=== PATIENT | male | born 1950 | race Caucasian/White ===

== ENCOUNTER 2017-02-27 14:09 | Inpatient (IN) | payer MEDICARE ==
[2017-02-27] MEDS ORDERED: Sodium Chloride 0.9% 1,000 ML IV ONE (14:11)
[2017-02-27] MEDS ORDERED: Famotidine 20 MG/2 ML SDV IVPUSH ONE (14:11)
[2017-02-27] MEDS ORDERED: Sodium Chloride 0.9% 10 ML Syringe FLUSH PRN (14:11)
[2017-02-27] MEDS ORDERED: Sodium Chloride 0.9% 2.5 ML Syringe FLUSH PRN (14:11)
[2017-02-27] MEDS ORDERED: Aspirin 81 MG Tab.Chew PO ONE (14:18)
--- NOTE | 2017-02-27 14:18 | EDM.PDOC ---
ED HPI GENERAL MEDICAL PROBLEM - General Chief Complaint: Chest Pain Stated Complaint: CHEST PAIN Time Seen by Provider: 02/27/17 14:17 Source of Information: Reports: Patient - History of Present Illness INITIAL COMMENTS - FREE TEXT/NARRATIVE: HISTORY AND PHYSICAL: History of present illness: [Patient presents with 3 out of 10 chest pain and epigastric pain denies any radiation arm neck or jaw no shortness of breath or diaphoresis Significant cardiac history no [place] 10 years ago with stenting and ultimately a bypass 4-5 years prior No fever nausea vomiting chills sweats ] Review of systems: As per history of present illness and below otherwise all systems reviewed and negative. Past medical history: As per history of present illness and as reviewed below otherwise noncontributory. Surgical history: As per history of present illness and as reviewed below otherwise noncontributory. Social history: No reported history of drug or alcohol abuse. Family history: As per history of present illness and as reviewed below otherwise noncontributory. Physical exam: HEENT: Atraumatic, normocephalic, pupils reactive, negative for conjunctival pallor or scleral icterus, mucous membranes moist, throat clear, neck supple, nontender, trachea midline. Lungs: Clear to auscultation, breath sounds equal bilaterally, chest nontender. Heart: S1S2, regular, negative for clicks, rubs, or JVD. Abdomen: Soft, nondistended, nontender. Negative for masses or hepatosplenomegaly. Negative for costovertebral tenderness. Pelvis: Stable nontender. Genitourinary: Deferred. Rectal: Deferred. Extremities: Atraumatic, negative for cords or calf pain. Neurovascular unremarkable. Neuro: Awake, alert, oriented. Cranial nerves II through XII unremarkable. Cerebellum unremarkable. Motor and sensory unremarkable throughout. Exam nonfocal. Diagnostics: [CBC CMP cardiac enzymes, amylase and lipase ]CT abdomen pelvis with contrast Therapeutics: [Aspirin 324 mg chewable 1 L bolused Normal saline 1 50 mL per hour Nitroglycerin nitroglycerin 3 doses no significant improvement in symptoms Morphine 4 mg IV ] Impression: Acute pancreatitis Chronic history of baseline Definitive disposition and diagnosis as appropriate pending reevaluation and review of above. Middle Chest Pain Score (Numeric/FACES): 3 - Related Data Allergies Allergy/AdvReac Type Severity Reaction Status Date / Time No Known Allergies Allergy Verified 02/27/17 14:17 ED ROS GENERAL - Review of Systems Review Of Systems: ROS reveals no pertinent complaints other than HPI. ED EXAM, GENERAL - Physical Exam Exam: See Below Course - Vital Signs Last Recorded V/S: Last Vital Signs Temp 96.4 F 02/27/17 14:12 Pulse 56 L 02/27/17 17:08 Resp 18 02/27/17 14:12 BP 147/78 H 02/27/17 17:08 Pulse Ox 99 02/27/17 14:12 - Orders/Labs/Meds Orders: Active Orders 24 hr Category Date Time Status Cardiac Monitoring [RC] . DIRECTED Care 02/27/17 14:11 Active EKG Documentation Completion [RC] STAT Care 02/27/17 14:12 Active Oxygen Therapy [RC] ASDIRECTED Care 02/27/17 14:11 Active Abdomen Pelvis w Cont [CT] Stat Exams 02/27/17 14:57 Taken Chest 1V Frontal [CR] Stat Exams 02/27/17 14:11 Taken Sodium Chloride 0.9% [Normal Saline] 1,000 ml Med 02/27/17 15:00 Active IV STAT Sodium Chloride 0.9% [Normal Saline] 1,000 ml Med 02/27/17 17:00 Active IV STAT Sodium Chloride 0.9% [Saline Flush] Med 02/27/17 14:11 Active 10 ml FLUSH ASDIRECTED PRN Sodium Chloride 0.9% [Saline Flush] Med 02/27/17 14:11 Active 2.5 ml FLUSH ASDIRECTED PRN Saline Lock Insert [OM.PC] Stat Oth 02/27/17 14:11 Ordered Medication Orders Sodium Chloride (Normal Saline) 1,000 mls @ 150 mls/hr IV STAT JAMI Sodium Chloride (Normal Saline) 1,000 mls @ 150 mls/hr IV STAT JAMI Last Admin: 02/27/17 17:05 Dose: 150 mls/hr Sodium Chloride (Saline Flush) 10 ml FLUSH ASDIRECTED PRN PRN Reason: Keep Vein Open Sodium Chloride (Saline Flush) 2.5 ml FLUSH ASDIRECTED PRN PRN Reason: Keep Vein Open Labs: Laboratory Tests 02/27/17 02/27/17 02/27/17 Range/Units 14:18 14:18 14:18 WBC 12.88 H (4.0-11.0) K/uL RBC 5.14 (4.50-5.90) M/uL Hgb 15.3 (13.0-17.0) g/dL Hct 45.5 (38.0-50.0) % MCV 88.5 (80.0-98.0) fL MCH 29.8 (27.0-32.0) pg MCHC 33.6 (31.0-37.0) g/dL RDW Std Deviation 42.9 (28.0-62.0) fl RDW Coeff of Theo 14 (11.0-15.0) % Plt Count 240 (150-400) K/uL MPV 10.20 (7.40-12.00) fL Neut % (Auto) 77.0 (48.0-80.0) % Lymph % (Auto) 12.6 L (16.0-40.0) % [place] % (Auto) 9.3 (0.0-15.0) % Eos % (Auto) 0.9 (0.0-7.0) % Baso % (Auto) 0.2 (0.0-1.5) % Neut # (Auto) 9.9 H (1.4-5.7) K/uL Lymph # (Auto) 1.6 (0.6-2.4) K/uL [place] # (Auto) 1.2 H (0.0-0.8) K/uL Eos # (Auto) 0.1 (0.0-0.7) K/uL Baso # (Auto) 0.0 (0.0-0.1) K/uL INR 1.13 H (0.86-1.11) Sodium 138 (136-146) mmol/L Potassium 4.2 (3.5-5.1) mmol/L Chloride 105 (98-110) mmol/L Carbon Dioxide 22 (21-31) mmol/L BUN 16 (6.0-23.0) mg/dL Creatinine 1.0 (0.6-1.5) mg/dL Est Cr Clr Drug Dosing 86.85 mL/min Estimated GFR (MDRD) > 60.0 ml/min Glucose 111 H (60-110) mg/dL Calcium 9.4 (8.8-10.8) mg/dL Total Bilirubin 0.9 (0.1-1.5) mg/dL AST 27 (5-40) IU/L ALT 24 (8-54) IU/L Alkaline Phosphatase 61 (40-150) Creatine Kinase (9-236) IU/L CK-MB (CK-2) (0-6.6) ng/ml Troponin I < 0.10 (0.0-0.29) NG/ML Total Protein 7.3 (6.0-8.0) g/dL Albumin 4.4 (3.4-4.8) g/dL Globulin 2.9 (2.0-3.5) g/dL Albumin/Globulin Ratio 1.5 (1.3-2.8) Amylase 2400 H (10-90) U/L Lipase 7125 H (7-80) U/L Urine Color Urine Appearance Urine pH (5.0-8.0) Ur Specific [place] (1.001-1.035) Urine Protein (NEGATIVE) mg/dL Urine Glucose (UA) (NEGATIVE) mg/dL Urine Ketones (NEGATIVE) mg/dL Urine Occult Blood (NEGATIVE) Urine Nitrite (NEGATIVE) Urine Bilirubin (NEGATIVE) Urine Urobilinogen (<2.0) EU/dL Ur Leukocyte Esterase (NEGATIVE) Urine RBC (0-2/HPF) Urine WBC (0-5/HPF) Ur Epithelial Cells (NONE-FEW) Urine Bacteria (NEGATIVE) Urine Mucus (NONE-MOD) 02/27/17 02/27/17 Range/Units 14:18 16:55 WBC (4.0-11.0) K/uL RBC (4.50-5.90) M/uL Hgb (13.0-17.0) g/dL Hct (38.0-50.0) % MCV (80.0-98.0) fL MCH (27.0-32.0) pg MCHC (31.0-37.0) g/dL RDW Std Deviation (28.0-62.0) fl RDW Coeff of Theo (11.0-15.0) % Plt Count (150-400) K/uL MPV (7.40-12.00) fL Neut % (Auto) (48.0-80.0) % Lymph % (Auto) (16.0-40.0) % [place] % (Auto) (0.0-15.0) % Eos % (Auto) (0.0-7.0) % Baso % (Auto) (0.0-1.5) % Neut # (Auto) (1.4-5.7) K/uL Lymph # (Auto) (0.6-2.4) K/uL [place] # (Auto) (0.0-0.8) K/uL Eos # (Auto) (0.0-0.7) K/uL Baso # (Auto) (0.0-0.1) K/uL INR (0.86-1.11) Sodium (136-146) mmol/L Potassium (3.5-5.1) mmol/L Chloride (98-110) mmol/L Carbon Dioxide (21-31) mmol/L BUN (6.0-23.0) mg/dL Creatinine (0.6-1.5) mg/dL Est Cr Clr Drug Dosing mL/min Estimated GFR (MDRD) ml/min Glucose (60-110) mg/dL Calcium (8.8-10.8) mg/dL Total Bilirubin (0.1-1.5) mg/dL AST (5-40) IU/L ALT (8-54) IU/L Alkaline Phosphatase (40-150) Creatine Kinase 195 (9-236) IU/L CK-MB (CK-2) 2.3 (0-6.6) ng/ml Troponin I (0.0-0.29) NG/ML Total Protein (6.0-8.0) g/dL Albumin (3.4-4.8) g/dL Globulin (2.0-3.5) g/dL Albumin/Globulin Ratio (1.3-2.8) Amylase (10-90) U/L Lipase (7-80) U/L Urine Color DARK YELLOW Urine Appearance CLEAR Urine pH 6.5 (5.0-8.0) Ur Specific [place] 1.020 (1.001-1.035) Urine Protein NEGATIVE (NEGATIVE) mg/dL Urine Glucose (UA) NEGATIVE (NEGATIVE) mg/dL Urine Ketones 15 H (NEGATIVE) mg/dL Urine Occult Blood NEGATIVE (NEGATIVE) Urine Nitrite NEGATIVE (NEGATIVE) Urine Bilirubin NEGATIVE (NEGATIVE) Urine Urobilinogen 1.0 (<2.0) EU/dL Ur Leukocyte Esterase NEGATIVE (NEGATIVE) Urine RBC 0-1 (0-2/HPF) Urine WBC 0-2 (0-5/HPF) Ur Epithelial Cells OCCASIONAL (NONE-FEW) Urine Bacteria FEW (NEGATIVE) Urine Mucus MODERATE (NONE-MOD) Meds: Medications Generic Name Dose Route Start Last Admin Trade Name Freq PRN Reason Stop Dose Admin Sodium Chloride 1,000 mls @ 150 mls/hr 02/27/17 15:00 Normal Saline IV STAT JAIM Sodium Chloride 1,000 mls @ 150 mls/hr 02/27/17 17:00 02/27/17 17:05 Normal Saline IV 150 mls/hr STAT JAMI Administration Sodium Chloride 10 ml 02/27/17 14:11 Saline Flush FLUSH ASDIRECTED PRN Keep Vein Open Sodium Chloride 2.5 ml 02/27/17 14:11 Saline Flush FLUSH ASDIRECTED PRN Keep Vein Open Discontinued Medications Generic Name Dose Route Start Last Admin Trade Name Freq PRN Reason Stop Dose Admin Aspirin 324 mg 02/27/17 14:18 02/27/17 14:23 Aspirin PO 02/27/17 14:19 324 mg ONETIME ONE Administration Famotidine 20 mg 02/27/17 14:11 02/27/17 14:24 Pepcid IVPUSH 02/27/17 14:12 20 mg ONETIME ONE Administration Sodium Chloride 1,000 mls @ 999 mls/hr 02/27/17 14:11 02/27/17 14:25 Normal Saline IV 02/27/17 15:11 999 mls/hr .Bolus ONE Administration Iopamidol 100 ml 02/27/17 16:15 02/27/17 16:40 Isovue Multipack-370 (76%) IVPUSH 02/27/17 16:16 100 ml ONETIME STA Administration Morphine Sulfate 4 mg 02/27/17 15:03 02/27/17 15:53 Morphine IVPUSH 02/27/17 15:04 4 mg ONETIME ONE Administration Nitroglycerin 0.4 mg 02/27/17 14:11 02/27/17 14:36 Nitrostat SL 02/27/17 14:12 0.4 mg ONETIME ONE Administration Departure - Departure Time of Disposition: 17:12 Disposition: Admitted As Inpatient 66 Condition: Fair Clinical Impression: Acute pancreatitis - Discharge Information Forms: ED Department Discharge - My Orders Last 24 Hours: My Active Orders 02/27/17 14:57 Abdomen Pelvis w Cont [CT] Stat 02/27/17 15:00 Sodium Chloride 0.9% [Normal Saline] 1,000 ml IV STAT 02/27/17 17:00 Sodium Chloride 0.9% [Normal Saline] 1,000 ml IV STAT - Assessment/Plan Last 24 Hours: My Active Orders 02/27/17 14:57 Abdomen Pelvis w Cont [CT] Stat 02/27/17 15:00 Sodium Chloride 0.9% [Normal Saline] 1,000 ml IV STAT 02/27/17 17:00 Sodium Chloride 0.9% [Normal Saline] 1,000 ml IV STAT
[2017-02-27] MEDS: Nitroglycerin 0.4 MG Tab.SL SL ONE ×3 (14:24→14:36)
[2017-02-27 14:46] LABS: CHLORIDE,CL 105 mmol/L (98-110); SODIUM,NA 138 mmol/L (136-146)
[2017-02-27] MEDS ORDERED: Sodium Chloride 0.9% 1,000 ML IV SCH ×2 (15:00→17:00)
[2017-02-27] MEDS ORDERED: Morphine 4 MG/ML Syringe IVPUSH ONE (15:03)
[2017-02-27] MEDS ORDERED: Iopamidol 755 MG/ML 500 ML Multipack Bottle IVPUSH STA (16:15)
--- NOTE | 2017-02-27 18:45 | PCM.HP ---
H&P History of Present Illness - General Date of Service: 02/27/17 Admit Problem/Dx: Admission Diagnosis/Problem Admission Diagnosis/Problem Acute pancreatitis Source of Information: Patient History Limitations: Reports: No Limitations - History of Present Illness Initial Comments - Free Text/Narative: 66-year-old male presenting to emergency department with chief complaint of chest pain with past medical history of CABG 3 with stents on Plavix, hypertension hyperlipidemia, and BPH. Patient states that this morning at 11 AM he began to have substernal and epigastric pain. He describes it as "like being punched in the stomach". He denies any radiation to his arm or jaw. He took 3 Tums and 3 baby aspirin which seemed to alleviate some of the pain but it never quite dissipated. Pain is constant and still occurring maximum 5 out of 10 currently 4-10. There was no associated nausea, vomiting, or diaphoresis. In June 2006 patient did have an CA which was stented by Dr. Pickard at [facility]. Then in December 2012 patient had a CABG [address] Saini at [facility]. Patient denies any nausea, vomiting, diarrhea, palpitations, shortness of breath, syncopal episodes, or focal neurologic deficits. He has had a "cold" for the past few days and states that his has been coughing. He did not receive the flu vaccination this year. Patient currently does not have a regular primary care physician here in [place]. He does not drink alcohol and as to his knowledge his triglycerides have been within normal limits. In the Emergency department CBC showed mild leukocytosis at 12.8 K elevated amylase at 2400 and lipase at 7125. Bilirubin was normal at 0.9 calcium within normal limits at 9.4 and kidney function was unremarkable with a BUN of 16 and a creatinine of 1.0. Chest x-ray was unremarkable. CT of the abdomen showed moderate acute pancreatitis with secondary chronic pancreatitis. Significant fluid was seen surrounding the pancreas extending along the bilateral pararenal fascia, right greater than left. There was also small gallstones identified without inflammatory change in the gallbladder. In addition, there were benign-appearing hypodensities within the liver. He was given ASA 324 mg 1, nitroglycerin 0.4 mg sublingual, 20 mg famotidine IV , morphine 4 mg and 1 L normal saline bolus. She was a admitted for acute pancreatitis. Onset of Symptoms: Reports: Today, Sudden Middle Chest Pain Score (Numeric/FACES): 3 - Related Data Allergies/Adverse Reactions: Allergies Allergy/AdvReac Type Severity Reaction Status Date / Time No Known Allergies Allergy Verified 02/27/17 14:17 Home Medications: Home Meds Carvedilol [Coreg] 25 mg PO DAILY 02/27/17 [History] Celecoxib [CeleBREX] 200 mg PO DAILY 02/27/17 [History] Clopidogrel [Plavix] 75 mg PO DAILY 02/27/17 [History] Ezetimibe [Zetia] 10 mg PO DAILY 02/27/17 [History] Finasteride 5 mg PO DAILY 02/27/17 [History] Lisinopril 10 mg PO DAILY 02/27/17 [History] Niacin [Niaspan] 500 mg PO DAILY 02/27/17 [History] Rosuvastatin Calcium [Crestor] 40 mg PO DAILY 02/27/17 [History] Tamsulosin [Flomax] 0.4 mg PO DAILY 02/27/17 [History] Past Medical History Cardiovascular History: Reports: CA, Stents Musculoskeletal History: Reports: Muscular Dystrophy - Infectious Disease History Infectious Disease History: Reports: Chicken Pox, Measles, Mumps - Past Surgical History Cardiovascular Surgical History: Reports: Coronary Artery Bypass Social & Family History - Family History Family Medical History: Noncontributory - Tobacco Use Smoking Status *Q: Never Smoker - Caffeine Use Caffeine Use: Reports: Coffee - Recreational Drug Use Recreational Drug Use: No H&P Review of Systems - Review of Systems: Review Of Systems: See Below General: Denies: Fever, Chills, Weakness, Fatigue, Diaphoresis HEENT: Denies: Headaches, Sore Throat Pulmonary: Denies: Shortness of Breath, Wheezing, Cough, Sputum Cardiovascular: Reports: Chest Pain. Denies: Palpitations, Edema Gastrointestinal: Reports: Abdominal Pain. Denies: Black Stool, Bloody Stool, Diarrhea, Nausea, Vomiting Musculoskeletal: Denies: Neck Pain, Leg Pain Skin: Denies: Cyanosis Neurological: Denies: Confusion, Dizziness, Headache Hematologic/Lymphatic: Denies: Anemia Exam - Exam Exam: See Below - Vital Signs Vital Signs: Last Vital Signs Temp 96.4 F 02/27/17 14:12 Pulse 56 L 02/27/17 17:08 Resp 18 02/27/17 14:12 BP 147/78 H 02/27/17 17:08 Pulse Ox 99 02/27/17 14:12 Weight: 100.3 kg - Exam Quality Assessment: DVT Prophylaxis General: Alert, Oriented, Cooperative HEENT: Conjunctiva Clear, EACs Clear, EOMI, Hearing Intact, Mucosa Moist & [place] , Nares Patent, Normal Nasal Septum, Posterior Pharynx Clear, PERRLA Neck: Supple, Trachea Midline, 2 Lungs: Clear to Auscultation, Normal Respiratory Effort Cardiovascular: Regular Rate, Regular Rhythm, Normal S1, Normal S2, Systolic Murmur GI/Abdominal Exam: Normal Bowel Sounds, Soft, No Organomegaly, No Distention, Tender (Dufesly tender with most tenderness in epigastric region) Back Exam: Normal Inspection Extremities: Normal Inspection, Non-Tender, No Pedal Edema, Normal Capillary Refill Peripheral Pulses: 2+: Radial (L), Radial (R), Posterior Tibial (L), Posterior Tibial (R), Dorsalis Pedis (L), Dorsalis Pedis (R) Skin: Warm, Dry, Intact Neurological: Cranial Nerves Intact Neuro Extensive - Mental Status: Alert, Oriented x3, Normal Mood/Affect, Normal Cognition Neuro Extensive - Motor, Sensory, Reflexes: CN II-XII Intact Psychiatric: Alert, Normal Affect, Normal Mood - Patient Data Result Diagrams: 02/27/17 14:18 02/27/17 14:18 *Q Meaningful Use (ADM) - VTE *Q VTE Criteria *Q: - Stroke *Q Stroke Criteria *Q: - AMI *Q AMI Criteria *Q: - Problem List (1) S/P CABG x 3 SNOMED Code(s): 880593556 ICD Code: Z95.1 - PRESENCE OF AORTOCORONARY BYPASS GRAFT Status: Chronic Priority: Medium Current Visit: Yes (2) HTN (hypertension) SNOMED Code(s): 09624801 ICD Code: I10 - ESSENTIAL (PRIMARY) HYPERTENSION Status: Chronic Priority : Medium Current Visit: Yes Qualifiers: Hypertension type: essential hypertension Qualified Code(s): I10 - Essential (primary) hypertension (3) Hyperlipemia SNOMED Code(s): 91876540 ICD Code: E78.5 - HYPERLIPIDEMIA, UNSPECIFIED Status: Chronic Priority: Low Current Visit: Yes Qualifiers: Hyperlipidemia type: unspecified Qualified Code(s): E78.5 - Hyperlipidemia , unspecified (4) BPH (benign prostatic hyperplasia) SNOMED Code(s): 590682170 ICD Code: N40.0 - BENIGN PROSTATIC HYPERPLASIA WITHOUT LOWER URINRY TRACT SYMP Status: Chronic Priority: Low Current Visit: Yes Qualifiers: Lower urinary tract symptom presence: unspecified whether lower urinary tract symptoms present Qualified Code(s): N40.0 - Benign prostatic hyperplasia without lower urinary tract symptoms (5) Acute pancreatitis SNOMED Code(s): 843096823 ICD Code: K85.90 - ACUTE PANCREATITIS WITHOUT NECROSIS OR INFECTION, UNSP Status: Suspected Priority: High Current Visit: Yes Qualifiers: Pancreatitis type: biliary Acute pancreatitis complication: unspecified Qualified Code(s): K85.10 - Biliary acute pancreatitis without necrosis or infection Problem List Initiated/Reviewed/Updated: Yes Orders Last 24hrs: Medication Orders Sodium Chloride (Normal Saline) 1,000 mls @ 150 mls/hr IV STAT JAMI Sodium Chloride (Normal Saline) 1,000 mls @ 150 mls/hr IV STAT JAMI Last Admin: 02/27/17 17:05 Dose: 150 mls/hr Sodium Chloride (Saline Flush) 10 ml FLUSH ASDIRECTED PRN PRN Reason: Keep Vein Open Sodium Chloride (Saline Flush) 2.5 ml FLUSH ASDIRECTED PRN PRN Reason: Keep Vein Open Assessment/Plan Comment:: 66-year-old male admitted 02/27/17 for acute pancreatitis with past medical history of CABG 3 with stents on Plavix, hypertension, hyperlipidemia, and BPH. Acute pancreatitis: IV fluids resuscitation at 250 mL per hour LR, nothing by mouth, Zofran for nausea, IV morphine 4 mg every 4 hours when necessary pain, Protonix 40 mg IV daily. Will get an upper quadrant ultrasound secondary to cholelithiasis seen on CT and most likely etiology of acute pancreatitis. Patient does have some chronic pancreatic changes suggesting that this may be more of a long-term issue that he has been dealing with. He is not a drinker and as per patient lipids have been well controlled with medications. Once pain is been controlled we will slowly increase diet. CABG 3: Extensive cardiac history we'll place on telemetry and trend troponins. However initial ECG does not show any signs of acute ischemic changes and initial trop neg. Hypertension: Currently well controlled we'll restart home medications as tolerated. Hyperlipidemia: We'll get lipid panel and continue home medications. BPH: Currently controlled we'll resume home medications once we start a diet. VTE proph: Lovenox SC, SCD Dispo: 3-4 days.
[2017-02-27] MEDS ORDERED: Ondansetron 4 MG/2 ML SDV IVPUSH PRN (18:50)
[2017-02-27] MEDS: Heparin Sodium 5,000 Units/ML Vial SUBCUT SCH (19:59)
[2017-02-27] MEDS: Morphine 4 MG/ML Syringe IVPUSH PRN (21:51)
[2017-02-27] MEDS: Lactated Ringers 1,000 ML IV SCH (21:53)
[2017-02-28] MEDS: Lactated Ringers 1,000 ML IV SCH ×6 (01:58→21:31)
[2017-02-28] MEDS: Morphine 4 MG/ML Syringe IVPUSH PRN ×2 (02:04→06:14)
[2017-02-28 02:38] LABS: CHLORIDE,CL 111 mmol/L (98-110); SODIUM,NA 139 mmol/L (136-146)
[2017-02-28] MEDS: Heparin Sodium 5,000 Units/ML Vial SUBCUT SCH ×2 (06:08→18:53)
--- NOTE | 2017-02-28 07:00 | PCM.PN ---
- General Info Date of Service: 02/28/17 Admission Dx/Problem (Free Text): Admission Diagnosis/Problem Admission Diagnosis/Problem Acute pancreatitis Subjective Update: Doing better today. Has no pain when laying flat however pain does increase whenever he gets up and moves or goes to bathroom. Currently 210. He did use morphine overnight. Denies any nausea, vomiting, diarrhea, fever, chills, chest pain, palpitations, shortness of breath, or focal neurologic deficits. Functional Status: Reports: Pain Controlled, Ambulating, Urinating - Review of Systems General: Denies: Fever, Weakness, Fatigue, Malaise HEENT: Denies: Headaches, Visual Changes Pulmonary: Denies: Shortness of Breath, Pleuritic Chest Pain, Cough, Hemoptysis Cardiovascular: Denies: Chest Pain, Palpitations, Edema Gastrointestinal: Reports: Abdominal Pain. Denies: Diarrhea, Hematochezia, Melena, Nausea, Vomiting Genitourinary: Denies: Dysuria, Hematuria Musculoskeletal: Denies: Neck Pain, Leg Pain Skin: Denies: Cyanosis Neurological: Denies: Confusion, Dizziness, Headache Psychiatric: Denies: Confusion - Patient Data Vitals - Most Recent: Last Vital Signs Temp 97.7 F 02/28/17 04:00 Pulse 60 02/28/17 04:00 Resp 16 02/28/17 04:00 BP 113/67 02/28/17 04:00 Pulse Ox 95 02/28/17 04:00 Weight - Most Recent: 97.9 kg I&O - Last 24 Hours: Intake & Output 02/27/17 02/27/17 02/28/17 14:59 22:59 06:59 Intake Total 1000 2000 Output Total 400 Balance 1000 1600 Lab Results Last 24 Hours: Laboratory Results - last 24 hr 02/27/17 02/28/17 02/28/17 Range/Units 20:00 02:04 02:04 WBC 9.74 (4.0-11.0) K/uL RBC 4.85 (4.50-5.90) M/uL Hgb 14.4 (13.0-17.0) g/dL Hct 42.9 (38.0-50.0) % MCV 88.5 (80.0-98.0) fL MCH 29.7 (27.0-32.0) pg MCHC 33.6 (31.0-37.0) g/dL RDW Std Deviation 42.4 (28.0-62.0) fl RDW Coeff of Theo 13 (11.0-15.0) % Plt Count 173 (150-400) K/uL MPV 10.30 (7.40-12.00) fL Neut % (Auto) 72.6 (48.0-80.0) % Lymph % (Auto) 16.4 (16.0-40.0) % [place] % (Auto) 9.8 (0.0-15.0) % Eos % (Auto) 1.0 (0.0-7.0) % Baso % (Auto) 0.2 (0.0-1.5) % Neut # (Auto) 7.1 H (1.4-5.7) K/uL Lymph # (Auto) 1.6 (0.6-2.4) K/uL [place] # (Auto) 1.0 H (0.0-0.8) K/uL Eos # (Auto) 0.1 (0.0-0.7) K/uL Baso # (Auto) 0.0 (0.0-0.1) K/uL Sodium 139 (136-146) mmol/L Potassium 4.0 (3.5-5.1) mmol/L Chloride 111 H (98-110) mmol/L Carbon Dioxide 18 L (21-31) mmol/L BUN 14 (6.0-23.0) mg/dL Creatinine 0.7 (0.6-1.5) mg/dL Est Cr Clr Drug Dosing 124.07 mL/min Estimated GFR (MDRD) > 60.0 ml/min Glucose 95 (60-110) mg/dL Calcium 8.6 L (8.8-10.8) mg/dL Magnesium 1.8 (1.5-2.3) mEq/L Total Bilirubin 0.8 (0.1-1.5) mg/dL AST 21 (5-40) IU/L ALT 19 (8-54) IU/L Alkaline Phosphatase 50 (40-150) Troponin I < 0.10 (0.0-0.29) NG/ML Total Protein 5.8 L (6.0-8.0) g/dL Albumin 3.6 (3.4-4.8) g/dL Globulin 2.2 (2.0-3.5) g/dL Albumin/Globulin Ratio 1.6 (1.3-2.8) Triglycerides 170 (10-190) mg/dL Cholesterol 108 L (131-240) mg/dL LDL Cholesterol, Calc 60 (60-180) mg/dL VLDL Cholesterol 34 (5-55) mg/dL HDL Cholesterol 14 L (40-80) mg/dL Cholesterol/HDL Ratio 7.7 H (3.3-6.0) 02/28/17 Range/Units 02:04 WBC (4.0-11.0) K/uL RBC (4.50-5.90) M/uL Hgb (13.0-17.0) g/dL Hct (38.0-50.0) % MCV (80.0-98.0) fL MCH (27.0-32.0) pg MCHC (31.0-37.0) g/dL RDW Std Deviation (28.0-62.0) fl RDW Coeff of Theo (11.0-15.0) % Plt Count (150-400) K/uL MPV (7.40-12.00) fL Neut % (Auto) (48.0-80.0) % Lymph % (Auto) (16.0-40.0) % [place] % (Auto) (0.0-15.0) % Eos % (Auto) (0.0-7.0) % Baso % (Auto) (0.0-1.5) % Neut # (Auto) (1.4-5.7) K/uL Lymph # (Auto) (0.6-2.4) K/uL [place] # (Auto) (0.0-0.8) K/uL Eos # (Auto) (0.0-0.7) K/uL Baso # (Auto) (0.0-0.1) K/uL Sodium (136-146) mmol/L Potassium (3.5-5.1) mmol/L Chloride (98-110) mmol/L Carbon Dioxide (21-31) mmol/L BUN (6.0-23.0) mg/dL Creatinine (0.6-1.5) mg/dL Est Cr Clr Drug Dosing mL/min Estimated GFR (MDRD) ml/min Glucose (60-110) mg/dL Calcium (8.8-10.8) mg/dL Magnesium (1.5-2.3) mEq/L Total Bilirubin (0.1-1.5) mg/dL AST (5-40) IU/L ALT (8-54) IU/L Alkaline Phosphatase (40-150) Troponin I < 0.10 (0.0-0.29) NG/ML Total Protein (6.0-8.0) g/dL Albumin (3.4-4.8) g/dL Globulin (2.0-3.5) g/dL Albumin/Globulin Ratio (1.3-2.8) Triglycerides (10-190) mg/dL Cholesterol (131-240) mg/dL LDL Cholesterol, Calc (60-180) mg/dL VLDL Cholesterol (5-55) mg/dL HDL Cholesterol (40-80) mg/dL Cholesterol/HDL Ratio (3.3-6.0) Lionel Results Last 24 Hours: Microbiology 02/27/17 22:45 Influenza Type A Antigen Screen - Final Nasopharyngeal Swab - Nare, Right NEGATIVE INFLUENZA A VIRUS AG Influenza Type B Antigen Screen - Final NEGATIVE INFLUENZA B VIRUS AG Med Orders - Current: Current Medications Carvedilol (Coreg) 25 mg PO DAILY [facility] Clopidogrel Bisulfate (Plavix) 75 mg PO DAILY [facility] Finasteride (Proscar) 5 mg PO DAILY [facility] Heparin Sodium (Porcine) (Heparin Sodium) 5,000 units SUBCUT Q12H [facility] Last Admin: 02/28/17 06:08 Dose: 5,000 units Sodium Chloride (Normal Saline) 1,000 mls @ 150 mls/hr IV STAT [facility] Sodium Chloride (Normal Saline) 1,000 mls @ 150 mls/hr IV STAT [facility] Last Admin: 02/27/17 17:05 Dose: 150 mls/hr Lactated Ringer's (Ringers, Lactated) 1,000 mls @ 250 mls/hr IV ASDIRECTED [facility] Last Admin: 02/28/17 06:04 Dose: 250 mls/hr Influenza Virus Vaccine (Flulaval Quad [id number]) 60 mcg IM .ONCE ONE Stop: 02/28/17 09:01 Lisinopril (Prinivil) 10 mg PO DAILY [facility] Morphine Sulfate (Morphine) 4 mg IVPUSH Q2H PRN PRN Reason: Pain (severe 7-10) Stop: 02/28/17 18:52 Last Admin: 02/28/17 06:14 Dose: 4 mg Ondansetron HCl (Zofran) 4 mg IVPUSH Q4H PRN PRN Reason: Nausea Pantoprazole Sodium (Protonix Iv) 40 mg IVPUSH DAILY [facility] Rosuvastatin Calcium (Crestor) 40 mg PO DAILY [facility] Sodium Chloride (Saline Flush) 10 ml FLUSH ASDIRECTED PRN PRN Reason: Keep Vein Open Sodium Chloride (Saline Flush) 2.5 ml FLUSH ASDIRECTED PRN PRN Reason: Keep Vein Open Tamsulosin HCl (Flomax) 0.4 mg PO DAILY [facility] Discontinued Medications Aspirin (Aspirin) 324 mg PO ONETIME ONE Stop: 02/27/17 14:19 Last Admin: 02/27/17 14:23 Dose: 324 mg Famotidine (Pepcid) 20 mg IVPUSH ONETIME ONE Stop: 02/27/17 14:12 Last Admin: 02/27/17 14:24 Dose: 20 mg Sodium Chloride (Normal Saline) 1,000 mls @ 999 mls/hr IV .Bolus ONE Stop: 02/27/17 15:11 Last Admin: 02/27/17 14:25 Dose: 999 mls/hr Iopamidol (Isovue Multipack-370 (76%)) 100 ml IVPUSH ONETIME STA Stop: 02/27/17 16:16 Last Admin: 02/27/17 16:40 Dose: 100 ml Morphine Sulfate (Morphine) 4 mg IVPUSH ONETIME ONE Stop: 02/27/17 15:04 Last Admin: 02/27/17 15:53 Dose: 4 mg Nitroglycerin (Nitrostat) 0.4 mg SL ONETIME ONE Stop: 02/27/17 14:12 Last Admin: 02/27/17 14:36 Dose: 0.4 mg - Exam Quality Assessment: DVT Prophylaxis General: Alert, Oriented, Cooperative, No Acute Distress HEENT: Pupils Equal, Pupils Reactive, EOMI, Mucous Membr. Moist/[place] Neck: Supple, Trachea Midline Lungs: Clear to Auscultation, Normal Respiratory Effort. No: Crackles, Rales, Rhonchi Cardiovascular: Regular Rate, Regular Rhythm, Murmurs GI/Abdominal Exam: Normal Bowel Sounds, Soft, No Organomegaly, No Distention, Tender Back Exam: Normal Inspection Extremities: Normal Inspection, Non-Tender, No Pedal Edema, Normal Capillary Refill Peripheral Pulses: 2+: Radial (L), Radial (R), Posterior Tibial (L), Posterior Tibial (R), Dorsalis Pedis (L), Dorsalis Pedis (R) Skin: Warm, Dry, Intact Neurological: No New Focal Deficit Psy/Mental Status: Alert, Normal Affect, Normal Mood - Problem List & Annotations (1) S/P CABG x 3 SNOMED Code(s): 939955873 Code(s): Z95.1 - PRESENCE OF AORTOCORONARY BYPASS GRAFT Status: Chronic Priority: Medium Current Visit: Yes (2) HTN (hypertension) SNOMED Code(s): 59463054 Code(s): I10 - ESSENTIAL (PRIMARY) HYPERTENSION Status: Chronic Priority : Medium Current Visit: Yes Qualifiers: Hypertension type: essential hypertension Qualified Code(s): I10 - Essential (primary) hypertension (3) Hyperlipemia SNOMED Code(s): 72135409 Code(s): E78.5 - HYPERLIPIDEMIA, UNSPECIFIED Status: Chronic Priority: Low Current Visit: Yes Qualifiers: Hyperlipidemia type: unspecified Qualified Code(s): E78.5 - Hyperlipidemia , unspecified (4) BPH (benign prostatic hyperplasia) SNOMED Code(s): 359770443 Code(s): N40.0 - BENIGN PROSTATIC HYPERPLASIA WITHOUT LOWER URINRY TRACT SYMP Status: Chronic Priority: Low Current Visit: Yes Qualifiers: Lower urinary tract symptom presence: unspecified whether lower urinary tract symptoms present Qualified Code(s): N40.0 - Benign prostatic hyperplasia without lower urinary tract symptoms (5) Acute pancreatitis SNOMED Code(s): 815168934 Code(s): K85.90 - ACUTE PANCREATITIS WITHOUT NECROSIS OR INFECTION, UNSP Status: Suspected Priority: High Current Visit: Yes Qualifiers: Pancreatitis type: biliary Acute pancreatitis complication: unspecified Qualified Code(s): K85.10 - Biliary acute pancreatitis without necrosis or infection - Problem List Review Problem List Initiated/Reviewed/Updated: Yes - My Orders Last 24 Hours: My Active Orders 02/27/17 18:50 Patient Status [ADT] Routine Height and Weight [RC] DAILY Oxygen Therapy [RC] PRN Up With Assistance [RC] ASDIRECTED VTE/DVT Education [RC] PER UNIT ROUTINE Vital Signs [RC] Q4H Abdomen Ltd [US] Routine Morphine 4 mg IVPUSH Q2H PRN Ondansetron [Zofran] 4 mg IVPUSH Q4H PRN Resuscitation Status Routine 02/27/17 18:51 Antiembolic Devices [RC] PER UNIT ROUTINE Intake and Output [RC] Q12H Sequential Compression Device [OM.PC] Per Unit Routine 02/27/17 18:58 Telemetry Monitoring [Cardiac Monitoring] [RC] . DIRECTED 02/27/17 19:00 Heparin Sodium 5,000 units SUBCUT Q12H Lactated Ringers [Ringers, Lactated] 1,000 ml IV ASDIRECTED 02/27/17 Dinner Nothing per Oral Now Diet [DIET] 02/28/17 09:00 Carvedilol [Coreg] 25 mg PO DAILY Clopidogrel [Plavix] 75 mg PO DAILY [facility] Vacc [id number](6MOS UP)/PF [Flulaval Quad [id number]] 60 mcg IM .ONCE ONE Finasteride [Proscar] 5 mg PO DAILY Lisinopril [Prinivil] 10 mg PO DAILY Pantoprazole [ProTONIX IV] 40 mg IVPUSH DAILY Rosuvastatin [Crestor] 40 mg PO DAILY Tamsulosin [Flomax] 0.4 mg PO DAILY 03/01/17 05:11 CBC WITH AUTO DIFF [HEME] AM COMPREHENSIVE METABOLIC PN,CMP [CHEM] AM MAGNESIUM [CHEM] AM 03/02/17 05:11 CBC WITH AUTO DIFF [HEME] AM COMPREHENSIVE METABOLIC PN,CMP [CHEM] AM MAGNESIUM [CHEM] AM 03/03/17 05:11 CBC WITH AUTO DIFF [HEME] AM COMPREHENSIVE METABOLIC PN,CMP [CHEM] AM MAGNESIUM [CHEM] AM - Plan Plan:: 66-year-old male admitted 02/27/17 for acute pancreatitis with past medical history of CABG 3 with stents on Plavix, hypertension, hyperlipidemia, and BPH. Acute pancreatitis: Cont. IV fluids resuscitation at 250 mL per hour LR. Still having some pain with keep NPO and reassess this evening. Cont. Zofran for nausea, IV morphine 4 mg every 4 hours when necessary pain, Protonix 40 mg IV daily. Abd ultrasound completed this am, awaiting results. Chronic changes seen on CT, may benefit from cholecystectomy in the future. CABG 3: Cont. Telemetry Troponin x3 negative. Hypertension: Controlled cont. home meds Hyperlipidemia: Controlled continue home meds. Lipid panel: Total cholesterol 108, LDL 60, HDL 14, Lipase down 7125 to 1930. BPH: Currently controlled we'll resume home medications once we start a diet. VTE proph: Lovenox SC, SCD Dispo: 2-3 days.
[2017-02-28] MEDS ORDERED: FLU Vacc QS 2017-18 (6mos UP)/PF 60 MCG/0.5 ML Syringe IM ONE (09:00)
[2017-02-28] MEDS: Pantoprazole 40 MG Vial IVPUSH SCH (09:41)
[2017-02-28] MEDS: Finasteride 5 MG Tab PO SCH (09:42)
[2017-02-28] MEDS: Lisinopril 10 MG Tab PO SCH (09:43)
[2017-02-28] MEDS: Carvedilol 25 MG Tab PO SCH (09:43)
[2017-02-28] MEDS: Tamsulosin 0.4 MG Cap.ER PO SCH (09:43)
[2017-02-28] MEDS: Clopidogrel 75 MG Tab PO SCH (09:44)
[2017-02-28] MEDS: Rosuvastatin 10 MG Tab PO SCH (09:44)
[2017-02-28] MEDS ORDERED: Calcium Carbonate 500 MG Tab.Chew PO ONE (09:55)
--- NOTE | 2017-02-28 15:39 | PCM.SN ---
- Free Text/Narrative Note: Abdominal ultrasound revealed no gallstones. There was some bladder tenderness on palpation but no biliary dilatation. Stable hepatic cysts.
[2017-02-28] MEDS ORDERED: Acetaminophen/HYDROcodone 325-5 MG Tab PO PRN (19:18)
[2017-03-01] MEDS: Lactated Ringers 1,000 ML IV SCH ×4 (01:36→17:45)
[2017-03-01 06:41] LABS: CHLORIDE,CL 111 mmol/L (98-110); SODIUM,NA 138 mmol/L (136-146)
[2017-03-01] MEDS: Heparin Sodium 5,000 Units/ML Vial SUBCUT SCH ×2 (07:53→18:19)
[2017-03-01] MEDS ORDERED: Magnesium Sulfate/Water 4 GM in Premix Bag 1 BAG IV ONE (08:09)
--- NOTE | 2017-03-01 08:10 | PCM.PN ---
- General Info Date of Service: 03/01/17 Admission Dx/Problem (Free Text): Admission Diagnosis/Problem Admission Diagnosis/Problem Acute pancreatitis Subjective Update: Doing well this morning, no chest pain or SOB. Having scant epigastric tenderness, but tolerated breakfast ok. [place] is helping pain. On second rounds, patient reports having solid to liquid stools that came on suddenly. Had some cramping and sharp pain to his abdomen prior to BM but now no pain after BMs. Functional Status: Reports: Pain Controlled, Tolerating Diet, Ambulating, Urinating - Review of Systems General: Reports: No Symptoms. Denies: Fever Pulmonary: Reports: No Symptoms. Denies: Shortness of Breath Cardiovascular: Reports: No Symptoms. Denies: Chest Pain, Palpitations Gastrointestinal: Reports: Abdominal Pain (epigastric to palpation. Pain much better since admission.), Diarrhea, Flatus. Denies: Nausea, Vomiting Genitourinary: Reports: No Symptoms. Denies: Dysuria, Frequency, Burning Musculoskeletal: Reports: No Symptoms Neurological: Reports: No Symptoms Psychiatric: Reports: No Symptoms - Patient Data Vitals - Most Recent: Last Vital Signs Temp 100.3 F 03/01/17 04:00 Pulse 60 03/01/17 04:00 Resp 12 03/01/17 04:00 BP 105/47 L 03/01/17 04:00 Pulse Ox 91 L 03/01/17 04:00 Weight - Most Recent: 97.9 kg I&O - Last 24 Hours: Intake & Output 02/28/17 03/01/17 03/01/17 22:59 06:59 14:59 Intake Total 1000 1300 Output Total 2030 Balance 1000 -730 Lab Results Last 24 Hours: Laboratory Results - last 24 hr 02/28/17 03/01/17 03/01/17 Range/Units 02:04 06:11 06:11 WBC 9.00 (4.0-11.0) K/uL RBC 4.19 L (4.50-5.90) M/uL Hgb 12.4 L (13.0-17.0) g/dL Hct 37.0 L (38.0-50.0) % MCV 88.3 (80.0-98.0) fL MCH 29.6 (27.0-32.0) pg MCHC 33.5 (31.0-37.0) g/dL RDW Std Deviation 44.6 (28.0-62.0) fl RDW Coeff of Theo 14 (11.0-15.0) % Plt Count 169 (150-400) K/uL MPV 10.10 (7.40-12.00) fL Neut % (Auto) 75.1 (48.0-80.0) % Lymph % (Auto) 12.2 L (16.0-40.0) % [place] % (Auto) 12.0 (0.0-15.0) % Eos % (Auto) 0.6 (0.0-7.0) % Baso % (Auto) 0.1 (0.0-1.5) % Neut # (Auto) 6.8 H (1.4-5.7) K/uL Lymph # (Auto) 1.1 (0.6-2.4) K/uL [place] # (Auto) 1.1 H (0.0-0.8) K/uL Eos # (Auto) 0.1 (0.0-0.7) K/uL Baso # (Auto) 0.0 (0.0-0.1) K/uL Nucleated RBC % 0.0 /100WBC Nucleated RBCs # 0 K/uL Sodium 138 (136-146) mmol/L Potassium 3.8 (3.5-5.1) mmol/L Chloride 111 H (98-110) mmol/L Carbon Dioxide 20 L (21-31) mmol/L BUN 8 (6.0-23.0) mg/dL Creatinine 0.7 (0.6-1.5) mg/dL Est Cr Clr Drug Dosing 124.07 mL/min Estimated GFR (MDRD) > 60.0 ml/min Glucose 81 (60-110) mg/dL Calcium 8.2 L (8.8-10.8) mg/dL Magnesium 1.3 L (1.5-2.3) mEq/L Total Bilirubin 1.0 (0.1-1.5) mg/dL AST 16 (5-40) IU/L ALT 13 (8-54) IU/L Alkaline Phosphatase 43 (40-150) Total Protein 5.1 L (6.0-8.0) g/dL Albumin 3.1 L (3.4-4.8) g/dL Globulin 2.0 (2.0-3.5) g/dL Albumin/Globulin Ratio 1.6 (1.3-2.8) Lipase 1930 H 509 H (7-80) U/L Med Orders - Current: Current Medications Hydrocodone Bitart/Acetaminophen ([place] 325-5 Mg) 1 tab PO Q3H PRN PRN Reason: Pain Last Admin: 03/01/17 04:01 Dose: 1 tab Carvedilol (Coreg) 25 mg PO DAILY [facility] Last Admin: 02/28/17 09:43 Dose: 25 mg Clopidogrel Bisulfate (Plavix) 75 mg PO DAILY [facility] Last Admin: 02/28/17 09:44 Dose: 75 mg Finasteride (Proscar) 5 mg PO DAILY [facility] Last Admin: 02/28/17 09:42 Dose: 5 mg Heparin Sodium (Porcine) (Heparin Sodium) 5,000 units SUBCUT Q12H [facility] Last Admin: 03/01/17 07:53 Dose: 5,000 units Lactated Ringer's (Ringers, Lactated) 1,000 mls @ 250 mls/hr IV ASDIRECTED [facility] Last Admin: 03/01/17 05:35 Dose: 250 mls/hr Magnesium Sulfate 4 gm/ Premix 100 mls @ 50 mls/hr IV ONETIME ONE Stop: 03/01/17 10:08 Lisinopril (Prinivil) 10 mg PO DAILY [facility] Last Admin: 02/28/17 09:43 Dose: 10 mg Ondansetron HCl (Zofran) 4 mg IVPUSH Q4H PRN PRN Reason: Nausea Pantoprazole Sodium (Protonix Iv) 40 mg IVPUSH DAILY [facility] Last Admin: 02/28/17 09:41 Dose: 40 mg Rosuvastatin Calcium (Crestor) 40 mg PO DAILY [facility] Last Admin: 02/28/17 09:44 Dose: 40 mg Sodium Chloride (Saline Flush) 10 ml FLUSH ASDIRECTED PRN PRN Reason: Keep Vein Open Sodium Chloride (Saline Flush) 2.5 ml FLUSH ASDIRECTED PRN PRN Reason: Keep Vein Open Tamsulosin HCl (Flomax) 0.4 mg PO DAILY [facility] Last Admin: 02/28/17 09:43 Dose: 0.4 mg Discontinued Medications Aspirin (Aspirin) 324 mg PO ONETIME ONE Stop: 02/27/17 14:19 Last Admin: 02/27/17 14:23 Dose: 324 mg Calcium Carbonate/Glycine (Tums) 1,000 mg PO ONETIME ONE Stop: 02/28/17 09:56 Last Admin: 02/28/17 10:07 Dose: 1,000 mg Famotidine (Pepcid) 20 mg IVPUSH ONETIME ONE Stop: 02/27/17 14:12 Last Admin: 02/27/17 14:24 Dose: 20 mg Sodium Chloride (Normal Saline) 1,000 mls @ 999 mls/hr IV .Bolus ONE Stop: 02/27/17 15:11 Last Admin: 02/27/17 14:25 Dose: 999 mls/hr Sodium Chloride (Normal Saline) 1,000 mls @ 150 mls/hr IV STAT [facility] Sodium Chloride (Normal Saline) 1,000 mls @ 150 mls/hr IV STAT [facility] Last Admin: 02/27/17 17:05 Dose: 150 mls/hr Influenza Virus Vaccine (Flulaval Quad [id number]) 60 mcg IM .ONCE ONE Stop: 02/28/17 09:01 Last Admin: 02/28/17 13:20 Dose: 60 mcg Iopamidol (Isovue Multipack-370 (76%)) 100 ml IVPUSH ONETIME STA Stop: 02/27/17 16:16 Last Admin: 02/27/17 16:40 Dose: 100 ml Morphine Sulfate (Morphine) 4 mg IVPUSH ONETIME ONE Stop: 02/27/17 15:04 Last Admin: 02/27/17 15:53 Dose: 4 mg Morphine Sulfate (Morphine) 4 mg IVPUSH Q2H PRN PRN Reason: Pain (severe 7-10) Stop: 02/28/17 18:52 Last Admin: 02/28/17 06:14 Dose: 4 mg Nitroglycerin (Nitrostat) 0.4 mg SL ONETIME ONE Stop: 02/27/17 14:12 Last Admin: 02/27/17 14:36 Dose: 0.4 mg - Exam Quality Assessment: DVT Prophylaxis General: Alert, Oriented, Cooperative Neck: Supple Lungs: Clear to Auscultation, Normal Respiratory Effort Cardiovascular: Regular Rate, Regular Rhythm GI/Abdominal Exam: Normal Bowel Sounds, Soft, No Distention, No Mass, Tender ( some tenderness to epigastric region.). No: Guarding Extremities: Normal Inspection, Normal Range of Motion, Non-Tender, No Pedal Edema, Normal Capillary Refill Neurological: No New Focal Deficit Psy/Mental Status: Alert, Normal Affect, Normal Mood - Problem List & Annotations (1) Acute pancreatitis SNOMED Code(s): 730719238 Code(s): K85.90 - ACUTE PANCREATITIS WITHOUT NECROSIS OR INFECTION, UNSP Status: Acute Current Visit: Yes Qualifiers: Pancreatitis type: biliary Acute pancreatitis complication: no infection or necrosis Qualified Code(s): K85.10 - Biliary acute pancreatitis without necrosis or infection (2) BPH (benign prostatic hyperplasia) SNOMED Code(s): 647557441 Code(s): N40.0 - BENIGN PROSTATIC HYPERPLASIA WITHOUT LOWER URINRY TRACT SYMP Status: Chronic Priority: Low Current Visit: Yes Qualifiers: Lower urinary tract symptom presence: unspecified whether lower urinary tract symptoms present Qualified Code(s): N40.0 - Benign prostatic hyperplasia without lower urinary tract symptoms (3) HTN (hypertension) SNOMED Code(s): 98616364 Code(s): I10 - ESSENTIAL (PRIMARY) HYPERTENSION Status: Chronic Priority : Medium Current Visit: Yes Qualifiers: Hypertension type: essential hypertension Qualified Code(s): I10 - Essential (primary) hypertension (4) Hyperlipemia SNOMED Code(s): 72874916 Code(s): E78.5 - HYPERLIPIDEMIA, UNSPECIFIED Status: Chronic Priority: Low Current Visit: Yes Qualifiers: Hyperlipidemia type: unspecified Qualified Code(s): E78.5 - Hyperlipidemia , unspecified (5) S/P CABG x 3 SNOMED Code(s): 363770243 Code(s): Z95.1 - PRESENCE OF AORTOCORONARY BYPASS GRAFT Status: Chronic Priority: Medium Current Visit: Yes - Problem List Review Problem List Initiated/Reviewed/Updated: Yes - My Orders Last 24 Hours: My Active Orders 03/01/17 08:09 Magnesium Sulfate/Water [Magnesium Sulfate 4 GM in Water 100 ML] 4 gm Premix Bag 1 bag IV ONETIME - Plan Plan:: 66-year-old male admitted 02/27/17 for acute pancreatitis with past medical history of CABG 3 with stents on Plavix, hypertension, hyperlipidemia, and BPH. 1. Acute pancreatitis: Cont. IV fluids resuscitation LR 250 ml/hr. Pain improving. Tolerating CL, will advance to [place] this afternoon and monitor symptoms. Cont. Zofran for nausea, IV morphine 4 mg every 4 hours when necessary pain, Protonix 40 mg IV daily. Abd ultrasound revealed no gallstones, no biliary dilation. Stable hepatic cysts. Spoke with Dr. Tracy regarding this case, recommends follow up as outpatient with her for possible cholecystectomy. No elevation in triglycerides. 2. Hx CAD: Stable. Will removed telemetry, no chest pain. Controlled continue home meds 3. Hypertension: Controlled cont. home meds 4. BPH: stable, Continue jasiel medications. VTE proph: Lovenox Dispo: possible DC later today or in am.
[2017-03-01] MEDS: Rosuvastatin 10 MG Tab PO SCH (08:36)
[2017-03-01] MEDS: Clopidogrel 75 MG Tab PO SCH (08:37)
[2017-03-01] MEDS: Lisinopril 10 MG Tab PO SCH (08:37)
[2017-03-01] MEDS: Finasteride 5 MG Tab PO SCH (08:37)
[2017-03-01] MEDS: Tamsulosin 0.4 MG Cap.ER PO SCH (08:37)
[2017-03-01] MEDS: Carvedilol 25 MG Tab PO SCH (08:37)
[2017-03-01] MEDS: Pantoprazole 40 MG Vial IVPUSH SCH (08:39)
--- NOTE | 2017-03-01 17:48 | CR ---
EXAM DATE: 02/27/17 PATIENT'S AGE: 66 Patient: JASON JAMES Facility: [place], [place] Site . Site : 1950 Study: XRay Chest [id number]/20/2018 2:42:15 PM Ordering Physician: Doctor De Luna Final Report: INDICATION: Chest pain TECHNIQUE: Chest radiograph 1 view COMPARISON: None FINDINGS: Mediastinum: The heart silhouette is normal in size and morphology. The mediastinum is normal in appearance. Lungs: Both lungs are unremarkable in appearance. No sign of pleural effusion seen. No pneumothorax is identified. Bones and soft tissue: Unremarkable for age. IMPRESSION: 1. No acute cardiopulmonary disease is seen. Dictated by: Jimmy Hobson MD @ 02/27/2017 14:59:30 (Electronic Signature) Report Signed by Proxy. GUTHRIE CORTLAND MEDICAL CENTERRachael
--- NOTE | 2017-03-01 18:00 | CT ---
EXAM DATE: 02/27/17 PATIENT'S AGE: 66 Patient: JASON JAMES Facility: [place], [place] Site . Site : 1950 Study: CT Abdomen/Pelvis [id number]/20/2018 4:46:30 PM Ordering Physician: Angie Paiz Final Report: INDICATION: EPIGASTRIC PAIN INDICATION: Epigastric pain. TECHNIQUE: 3 mm axial imaging has been performed through the abdomen and pelvis after nonionic IV contrast. Sagittal and coronal reconstructions have been obtained. FINDINGS: The lung bases demonstrate mild atelectasis bilaterally. The liver demonstrates a bilobed circumscribed hypodensity within the left lobe liver, segment 4 most compatible with a benign cyst. Other scattered small tiny hypodensities identified which are likely benign. There are least 3 small gallstones identified within the gallbladder. No inflammatory change or obvious wall thickening is seen. The spleen and bilateral adrenal glands are within normal limits. The kidneys demonstrate symmetric enhancement bilaterally. There is moderate inflammatory change surrounding the pancreas consistent with moderate acute pancreatitis. In addition there scattered calcifications consistent with chronic pancreatitis. There is fluid along the right anterior para renal fascia and to lesser degree the left para renal fascia anteriorly. There is some stranding of the fat anteriorly. No gas is identified. No pancreatic ductal dilatation is seen. Retroperitoneum demonstrates no lymphadenopathy. No significant free fluid is seen within the pelvis. The prostate is enlarged. The bladder is decompressed. No evidence for bowel obstruction. There are no suspicious skeletal lesions identified. IMPRESSION: 1. Moderate acute pancreatitis with secondary chronic pancreatitis. Significant fluid is seen surrounding the pancreas extending along the bilateral para renal fascia, right greater the left. 2. There are small gallstones identified without inflammatory change of the gallbladder. 3. Benign-appearing hypodensities within the liver are noted. Dictated by Orlando Wolfe MD @ 02/27/2017 5:04:46 PM Dictated by: Orlando Wolfe MD @ 02/27/2017 17:04:58 (Electronic Signature) Report Signed by Proxy. SHALONDA
--- NOTE | 2017-03-01 18:50 | US ---
EXAM DATE: 02/27/17 PATIENT'S AGE: 66 Patient: JASON JAMES Facility: [place], [place] Site . Site : 1950 Study: US Abdomen [id number] 11:57:13 AM Ordering Physician: Jason Caldwell Final Report: INDICATION: Abdominal pain. TECHNIQUE: Limited abdominal ultrasound. COMPARISON: CT scan of the abdomen. February 27, 2017. Findings. No visualized gallstones. No gallbladder wall thickening. Common bile duct measures 5 mm. The pancreas is difficult to visualize but pancreatitis was present on previous CT scan. Sonographically normal right kidney. Septated cyst within the liver measuring 2.2 x 2.3 cm. IMPRESSION: No gallstones. The gallbladder showed some mild tenderness on palpation. No biliary dilatation. Stable hepatic cysts. Dictated by Nam Oconnor MD @ Feb 28 2017 1:50PM (Electronic Signature) Report Signed by Proxy. SHALONDA
[2017-03-02] MEDS: Lactated Ringers 1,000 ML IV SCH (00:51)
[2017-03-02 05:55] LABS: CHLORIDE,CL 111 mmol/L (98-110); SODIUM,NA 140 mmol/L (136-146)
[2017-03-02] MEDS: Heparin Sodium 5,000 Units/ML Vial SUBCUT SCH (06:53)
[2017-03-02] MEDS: Carvedilol 25 MG Tab PO SCH (09:05)
[2017-03-02] MEDS: Rosuvastatin 10 MG Tab PO SCH (09:06)
[2017-03-02] MEDS: Clopidogrel 75 MG Tab PO SCH (09:07)
[2017-03-02] MEDS: Finasteride 5 MG Tab PO SCH (09:07)
[2017-03-02] MEDS: Tamsulosin 0.4 MG Cap.ER PO SCH (09:07)
[2017-03-02] MEDS: Lisinopril 10 MG Tab PO SCH (09:07)
[2017-03-02] MEDS: Pantoprazole 40 MG Vial IVPUSH SCH (09:08)
--- NOTE | 2017-03-02 10:52 | PCM.DCSUM1 ---
Discharge Summary - Hospital Course Brief History: 66-year-old male presenting to emergency department with chief complaint of chest pain with past medical history of CABG 3 with stents on Plavix, hypertension hyperlipidemia, and BPH. Patient states that this morning at 11 AM he began to have substernal and epigastric pain. He describes it as "like being punched in the stomach". He denies any radiation to his arm or jaw. He took 3 Tums and 3 baby aspirin which seemed to alleviate some of the pain but it never quite dissipated. Pain is constant and still occurring maximum 5 out of 10 currently 4-10. There was no associated nausea, vomiting, or diaphoresis. In June 2006 patient did have an MD which was stented by Dr. Pickard at [facility]. Then in December 2012 patient had a CABG [address] Saini at [facility]. Patient denies any nausea, vomiting, diarrhea, palpitations, shortness of breath, syncopal episodes, or focal neurologic deficits. He has had a "cold" for the past few days and states that his has been coughing. He did not receive the flu vaccination this year. Patient currently does not have a regular primary care physician here in [place]. He does not drink alcohol and as to his knowledge his triglycerides have been within normal limits. In the Emergency department CBC showed mild leukocytosis at 12.8 K elevated amylase at 2400 and lipase at 7125. Bilirubin was normal at 0.9 calcium within normal limits at 9.4 and kidney function was unremarkable with a BUN of 16 and a creatinine of 1.0. Chest x-ray was unremarkable. CT of the abdomen showed moderate acute pancreatitis with secondary chronic pancreatitis. Significant fluid was seen surrounding the pancreas extending along the bilateral pararenal fascia, right greater than left. There was also small gallstones identified without inflammatory change in the gallbladder. In addition, there were benign-appearing hypodensities within the liver. He was given ASA 324 mg 1, nitroglycerin 0.4 mg sublingual, 20 mg famotidine IV, morphine 4 mg and 1 L normal saline bolus. He was a admitted for acute pancreatitis. - Discharge Data Discharge Date: 03/02/17 Discharge Disposition: Home, Self-Care 01 Condition: Good - Discharge Diagnosis/Problem(s) (1) Acute pancreatitis SNOMED Code(s): 644664165 ICD Code: K85.90 - ACUTE PANCREATITIS WITHOUT NECROSIS OR INFECTION, UNSP Status: Acute Qualifiers: Pancreatitis type: biliary Acute pancreatitis complication: no infection or necrosis Qualified Code(s): K85.10 - Biliary acute pancreatitis without necrosis or infection (2) BPH (benign prostatic hyperplasia) SNOMED Code(s): 714617645 ICD Code: N40.0 - BENIGN PROSTATIC HYPERPLASIA WITHOUT LOWER URINRY TRACT SYMP Status: Chronic Priority: Low Qualifiers: Lower urinary tract symptom presence: unspecified whether lower urinary tract symptoms present Qualified Code(s): N40.0 - Benign prostatic hyperplasia without lower urinary tract symptoms (3) HTN (hypertension) SNOMED Code(s): 72594240 ICD Code: I10 - ESSENTIAL (PRIMARY) HYPERTENSION Status: Chronic Priority : Medium Qualifiers: Hypertension type: essential hypertension Qualified Code(s): I10 - Essential (primary) hypertension (4) Hyperlipemia SNOMED Code(s): 89422493 ICD Code: E78.5 - HYPERLIPIDEMIA, UNSPECIFIED Status: Chronic Priority: Low Qualifiers: Hyperlipidemia type: unspecified Qualified Code(s): E78.5 - Hyperlipidemia , unspecified (5) S/P CABG x 3 SNOMED Code(s): 053808477, 794467244 ICD Code: Z95.1 - PRESENCE OF AORTOCORONARY BYPASS GRAFT Status: Chronic Priority: Medium - Patient Instructions Diet: GI Soft/Low Residue/Low Fiber Activity: No Strenuous Activities Driving: May Drive Today Showering/Bathing: May Shower Notify Provider of: Fever, Increased Pain, Swelling and Redness, Drainage, Nausea and/or Vomiting - Discharge Plan Home Medications: Home Meds Carvedilol [Coreg] 25 mg PO DAILY 02/27/17 [History] Clopidogrel [Plavix] 75 mg PO DAILY 02/27/17 [History] Finasteride 5 mg PO DAILY 02/27/17 [History] Lisinopril 10 mg PO DAILY 02/27/17 [History] Rosuvastatin Calcium [Crestor] 40 mg PO DAILY 02/27/17 [History] Tamsulosin [Flomax] 0.4 mg PO DAILY 02/27/17 [History] Referrals: [facility] [Outside] Simba Chapman MD [Resident] - 03/09/17 2:30 pm Suzy Tracy MD [Physician] - 03/12/17 10:30 am (1-3 weeks) - Discharge Summary/Plan Comment DC Time >30 min.: No Discharge Summary/Plan Comment: Discharge Diagnoses: Acute pancreatitis Possible biliary dyskinesia, Possible cholelithiasis HTN Hx CAD Hx CABG x 3 João was admitted and treated for acute pancreatitis, possibly secondary to biliary dyskinesia or cholelithasis. He was treated with IVFs and bowel rest along with pain medication. Lipase decreased appropriately, he was started on CL diet and continued to tolerate this as well as advancing to soft diet. He did have a bout of diarrhea yesterday, cultures all negative. Likely secondary to fruit juices he drank that morning. Today he is feeling much better, pain is very little and he is not needing PO narcotics. He is eager to be discharged home today. Due to the possibility of biliary dyskinesia or cholelithiasis, he will have appointment scheduled with Dr Tracy to evaluate the need for cholecystectomy. We will also arrange follow up with PCP. He is to continue taking home medications as prescribed prior. COntinue with bland low fiber, low fat diet for next two weeks then advance to regular. he is to return to ED or clinic if concerns should arise. - General Info Date of Service: 03/02/17 Admission Dx/Problem (Free Text: Admission Diagnosis/Problem Admission Diagnosis/Problem Acute pancreatitis Subjective Update: Feeling a lot better this morning. No chest pain or SOB. Epigastric pain is nearly gone, mainly there with palpation. He denies any further diarrhea and is ready for discharge home. - Review of Systems General: Reports: No Symptoms. Denies: Fever, Weakness, Fatigue Pulmonary: Reports: No Symptoms. Denies: Shortness of Breath Cardiovascular: Reports: No Symptoms. Denies: Chest Pain Gastrointestinal: Reports: Abdominal Pain (scant to epigastric). Denies: Diarrhea, Nausea, Vomiting Genitourinary: Reports: No Symptoms. Denies: Dysuria, Frequency - Patient Data Vitals - Most Recent: Last Vital Signs Temp 97.9 F 03/02/17 07:55 Pulse 65 03/02/17 09:05 Resp 16 03/02/17 07:55 BP 130/60 03/02/17 09:07 Pulse Ox 95 03/02/17 07:55 Weight - Most Recent: 102 kg I&O - Last 24 hours: Intake & Output 03/01/17 03/02/17 03/02/17 22:59 06:59 14:59 Intake Total 430 150 Output Total 520 1350 Balance -90 -1200 Lab Results - Last 24 hrs: Laboratory Results - last 24 hr 03/02/17 03/02/17 Range/Units 05:07 05:07 WBC 8.34 (4.0-11.0) K/uL RBC 4.10 L (4.50-5.90) M/uL Hgb 11.9 L (13.0-17.0) g/dL Hct 36.0 L (38.0-50.0) % MCV 87.8 (80.0-98.0) fL MCH 29.0 (27.0-32.0) pg MCHC 33.1 (31.0-37.0) g/dL RDW Std Deviation 44.7 (28.0-62.0) fl RDW Coeff of Theo 14 (11.0-15.0) % Plt Count 166 (150-400) K/uL MPV 10.20 (7.40-12.00) fL Neut % (Auto) 72.9 (48.0-80.0) % Lymph % (Auto) 14.6 L (16.0-40.0) % [place] % (Auto) 11.3 (0.0-15.0) % Eos % (Auto) 1.1 (0.0-7.0) % Baso % (Auto) 0.1 (0.0-1.5) % Neut # (Auto) 6.1 H (1.4-5.7) K/uL Lymph # (Auto) 1.2 (0.6-2.4) K/uL [place] # (Auto) 0.9 H (0.0-0.8) K/uL Eos # (Auto) 0.1 (0.0-0.7) K/uL Baso # (Auto) 0.0 (0.0-0.1) K/uL Nucleated RBC % 0.0 /100WBC Nucleated RBCs # 0 K/uL Sodium 140 (136-146) mmol/L Potassium 3.9 (3.5-5.1) mmol/L Chloride 111 H (98-110) mmol/L Carbon Dioxide 21 (21-31) mmol/L BUN 7 (6.0-23.0) mg/dL Creatinine 0.7 (0.6-1.5) mg/dL Est Cr Clr Drug Dosing 124.07 mL/min Estimated GFR (MDRD) > 60.0 ml/min Glucose 89 (60-110) mg/dL Calcium 7.8 L (8.8-10.8) mg/dL Magnesium 1.5 (1.5-2.3) mEq/L Total Bilirubin 1.0 (0.1-1.5) mg/dL AST 18 (5-40) IU/L ALT 14 (8-54) IU/L Alkaline Phosphatase 45 (40-150) Total Protein 4.7 L (6.0-8.0) g/dL Albumin 3.0 L (3.4-4.8) g/dL Globulin 1.7 L (2.0-3.5) g/dL Albumin/Globulin Ratio 1.8 (1.3-2.8) Lipase 210 H (7-80) U/L MAITE Results - Last 24 hrs: Microbiology 03/01/17 11:30 Clostridium difficile Toxin A&B (M) - Final Stool / Feces - Stool, Liquid Negative for C.Diff Toxin/AG 03/01/17 11:30 Campylobacter Antigen Assay - Final Stool / Feces - Stool, Liquid NEGATIVE [facility] Med Orders - Current: Current Medications Hydrocodone Bitart/Acetaminophen ([place] 325-5 Mg) 1 tab PO Q3H PRN PRN Reason: Pain Last Admin: 03/01/17 04:01 Dose: 1 tab Carvedilol (Coreg) 25 mg PO DAILY [facility] Last Admin: 03/02/17 09:05 Dose: 25 mg Clopidogrel Bisulfate (Plavix) 75 mg PO DAILY [facility] Last Admin: 03/02/17 09:07 Dose: 75 mg Finasteride (Proscar) 5 mg PO DAILY [facility] Last Admin: 03/02/17 09:07 Dose: 5 mg Heparin Sodium (Porcine) (Heparin Sodium) 5,000 units SUBCUT Q12H [facility] Last Admin: 03/02/17 06:53 Dose: 5,000 units Lactated Ringer's (Ringers, Lactated) 1,000 mls @ 150 mls/hr IV ASDIRECTED [facility] Last Admin: 03/02/17 00:51 Dose: 150 mls/hr Lisinopril (Prinivil) 10 mg PO DAILY [facility] Last Admin: 03/02/17 09:07 Dose: 10 mg Ondansetron HCl (Zofran) 4 mg IVPUSH Q4H PRN PRN Reason: Nausea Pantoprazole Sodium (Protonix Iv) 40 mg IVPUSH DAILY [facility] Last Admin: 03/02/17 09:08 Dose: 40 mg Rosuvastatin Calcium (Crestor) 40 mg PO DAILY [facility] Last Admin: 03/02/17 09:06 Dose: 40 mg Sodium Chloride (Saline Flush) 10 ml FLUSH ASDIRECTED PRN PRN Reason: Keep Vein Open Sodium Chloride (Saline Flush) 2.5 ml FLUSH ASDIRECTED PRN PRN Reason: Keep Vein Open Tamsulosin HCl (Flomax) 0.4 mg PO DAILY [facility] Last Admin: 03/02/17 09:07 Dose: 0.4 mg Discontinued Medications Aspirin (Aspirin) 324 mg PO ONETIME ONE Stop: 02/27/17 14:19 Last Admin: 02/27/17 14:23 Dose: 324 mg Calcium Carbonate/Glycine (Tums) 1,000 mg PO ONETIME ONE Stop: 02/28/17 09:56 Last Admin: 02/28/17 10:07 Dose: 1,000 mg Famotidine (Pepcid) 20 mg IVPUSH ONETIME ONE Stop: 02/27/17 14:12 Last Admin: 02/27/17 14:24 Dose: 20 mg Sodium Chloride (Normal Saline) 1,000 mls @ 999 mls/hr IV .Bolus ONE Stop: 02/27/17 15:11 Last Admin: 02/27/17 14:25 Dose: 999 mls/hr Sodium Chloride (Normal Saline) 1,000 mls @ 150 mls/hr IV STAT [facility] Sodium Chloride (Normal Saline) 1,000 mls @ 150 mls/hr IV STAT [facility] Last Admin: 02/27/17 17:05 Dose: 150 mls/hr Lactated Ringer's (Ringers, Lactated) 1,000 mls @ 250 mls/hr IV ASDIRECTED [facility] Last Admin: 03/01/17 11:50 Dose: 250 mls/hr Magnesium Sulfate 4 gm/ Premix 100 mls @ 50 mls/hr IV ONETIME ONE Stop: 03/01/17 10:08 Last Admin: 03/01/17 08:36 Dose: 50 mls/hr Influenza Virus Vaccine (Flulaval Quad [id number]) 60 mcg IM .ONCE ONE Stop: 02/28/17 09:01 Last Admin: 02/28/17 13:20 Dose: 60 mcg Iopamidol (Isovue Multipack-370 (76%)) 100 ml IVPUSH ONETIME STA Stop: 02/27/17 16:16 Last Admin: 02/27/17 16:40 Dose: 100 ml Morphine Sulfate (Morphine) 4 mg IVPUSH ONETIME ONE Stop: 02/27/17 15:04 Last Admin: 02/27/17 15:53 Dose: 4 mg Morphine Sulfate (Morphine) 4 mg IVPUSH Q2H PRN PRN Reason: Pain (severe 7-10) Stop: 02/28/17 18:52 Last Admin: 02/28/17 06:14 Dose: 4 mg Nitroglycerin (Nitrostat) 0.4 mg SL ONETIME ONE Stop: 02/27/17 14:12 Last Admin: 02/27/17 14:36 Dose: 0.4 mg - Exam General: Reports: Alert, Oriented, Cooperative, No Acute Distress Lungs: Reports: Clear to Auscultation, Normal Respiratory Effort Cardiovascular: Reports: Regular Rate, Regular Rhythm GI/Abdominal Exam: Normal Bowel Sounds, Soft, No Organomegaly, No Distention, No Abnormal Bruit, No Mass, Pelvis Stable, Tender (scant tenderness to epigastric region) Neurological: Reports: No New Focal Deficit Psy/Mental Status: Reports: Alert, Normal Affect, Normal Mood *Q Meaningful Use (DIS) - VTE *Q VTE Criteria *Q: - Stroke *Q Stroke Criteria *Q: - AMI *Q AMI Criteria *Q:
== END 2017-03-02 12:40 | disposition home or self-care (01) | DRG 440 ==
LOC: MW.ED 14:09 → MW.MS 17:12
PROVIDERS: ADMIT Family Medicine; ATTEND Family Medicine
DX: K85.90 Acute pancreatitis without necrosis or infection, unspecified (principal); K85.10 Biliary acute pancreatitis without necrosis or infection; K80.20 Calculus of gallbladder without cholecystitis without obstruction; N40.0 Benign prostatic hyperplasia without lower urinary tract symptoms; I10 Essential (primary) hypertension; E78.5 Hyperlipidemia, unspecified; I25.10 Atherosclerotic heart disease of native coronary artery without angina pectoris; Z95.1 Presence of aortocoronary bypass graft; Z79.899 Other long term (current) drug therapy
CPT/HCPCS: 71045; 74177; 80053; 81001; 82150; 82550; 82553; 83690; 84484; 85025; 85610; 93005; 96361; 96374; 96375; 99285; A9270 ×3; J2270; J7040 ×2; Q9967; 36415; 76705; 76705-26; 80061; 83735; 87046; 87324; 87804; 87899; 90686; C9113; G0008; J1644; J3475; J7120

== ENCOUNTER 2017-03-22 16:04 | Inpatient (IN) | payer MEDICARE ==
[2017-03-22] MEDS ORDERED: Sodium Chloride 0.9% 10 ML Syringe FLUSH PRN (16:39)
[2017-03-22] MEDS ORDERED: Sodium Chloride 0.9% 2.5 ML Syringe FLUSH PRN (16:39)
[2017-03-22] MEDS ORDERED: Ondansetron 4 MG/2 ML SDV IVPUSH ONE (16:39)
[2017-03-22] MEDS ORDERED: HYDROmorphone 1 MG/ML Syringe IVPUSH STA (16:39)
[2017-03-22] MEDS ORDERED: Sodium Chloride 0.9% 1,000 ML IV ONE ×2 (16:39→18:36)
[2017-03-22 17:16] LABS: CHLORIDE,CL 105 mmol/L (98-110); SODIUM,NA 138 mmol/L (136-146)
--- NOTE | 2017-03-22 18:23 | EDM.PDOC ---
ED HPI GENERAL MEDICAL PROBLEM - General Chief Complaint: Abdominal Pain Stated Complaint: UNK Time Seen by Provider: 03/22/17 16:35 Source of Information: Reports: Patient History Limitations: Reports: No Limitations - History of Present Illness INITIAL COMMENTS - FREE TEXT/NARRATIVE: History of present illness: []Patient was recently admitted for pancreatitis with a lipase of 8000. He was discharged in the hospital improved and had an outpatient MRI this morning. He followed by Dr. Tracy who has told him that he she will take his gallbladder out if the MRI is abnormal in any way. This evening he developed recurring abdominal pain that felt similar to when he first developed pancreatitis. As any fevers, vomiting or diarrhea. Review of systems: As per history of present illness and below otherwise all systems reviewed and negative. Past medical history: As per history of present illness and as reviewed below otherwise noncontributory. Surgical history: As per history of present illness and as reviewed below otherwise noncontributory. Social history: No reported history of drug or alcohol abuse. Family history: As per history of present illness and as reviewed below otherwise noncontributory. Physical exam: General: Well developed, well nourished in NAD HEENT: Atraumatic, normocephalic, pupils reactive, negative for conjunctival pallor or scleral icterus, mucous membranes moist, throat clear, neck supple, nontender, trachea midline. Lungs: Clear to auscultation, breath sounds equal bilaterally, chest nontender. Heart: S1S2, regular, negative for clicks, rubs, or JVD. Abdomen: Soft, nondistended, nontender. Negative for masses or hepatosplenomegaly. Negative for costovertebral tenderness. Pelvis: Stable nontender. Genitourinary: Deferred. Rectal: Deferred. Extremities: Atraumatic, negative for cords or calf pain. Neurovascular unremarkable. Neuro: Awake, alert, oriented. Cranial nerves II through XII unremarkable. Cerebellum unremarkable. Motor and sensory unremarkable throughout. Exam nonfocal. Diagnostics: []Labs showing a lipase of 9900+, white count of 15,000 without shift Therapeutics: []IV fluids, Dilaudid for pain Impression: [] Pancreatitis Plan: []Admit for IV hydration and pain meds Definitive disposition and diagnosis as appropriate pending reevaluation and review of above. RUQ Pain Score (Numeric/FACES): 7 - Related Data Allergies Allergy/AdvReac Type Severity Reaction Status Date / Time No Known Allergies Allergy Verified 03/22/17 16:30 Home Meds: Home Meds Carvedilol [Coreg] 25 mg PO DAILY 02/27/17 [History] Clopidogrel [Plavix] 75 mg PO DAILY 02/27/17 [History] Finasteride 5 mg PO DAILY 02/27/17 [History] Lisinopril 10 mg PO DAILY 02/27/17 [History] Rosuvastatin Calcium [Crestor] 40 mg PO DAILY 02/27/17 [History] Tamsulosin [Flomax] 0.4 mg PO DAILY 02/27/17 [History] Past Medical History HEENT History: Reports: None Cardiovascular History: Reports: MA, Stents Other Cardiovascular History: MA in 2006, three angioplasty. Triple bypass 2012. Respiratory History: Reports: None Gastrointestinal History: Reports: Pancreatitis Genitourinary History: Reports: BPH Musculoskeletal History: Reports: Muscular Dystrophy Neurological History: Reports: None Psychiatric History: Reports: None Endocrine/Metabolic History: Reports: None Hematologic History: Reports: Other (See Below) Other Hematologic History: DVT affecting left knee Immunologic History: Reports: None Oncologic (Cancer) History: Reports: None Dermatologic History: Reports: None - Infectious Disease History Infectious Disease History: Reports: Chicken Pox, Measles, Mumps - Past Surgical History Head Surgeries/Procedures: Reports: None HEENT Surgical History: Reports: None Cardiovascular Surgical History: Reports: Coronary Artery Bypass Respiratory Surgical History: Reports: None GI Surgical History: Reports: None Male Surgical History: Reports: None Endocrine Surgical History: Reports: None Neurological Surgical History: Reports: None Musculoskeletal Surgical History: Reports: None Oncologic Surgical History: Reports: None Dermatological Surgical History: Reports: None Social & Family History - Family History Family Medical History: Noncontributory - Tobacco Use Smoking Status *Q: Never Smoker Second Hand Smoke Exposure: No - Caffeine Use Caffeine Use: Reports: Coffee - Recreational Drug Use Recreational Drug Use: No ED ROS GENERAL - Review of Systems Review Of Systems: See Below (See history of present illness) ED EXAM, GI/ABD - Physical Exam Exam: See Below (See history of present illness) Course - Vital Signs Last Recorded V/S: Last Vital Signs Temp 96.7 F 03/22/17 16:31 Pulse 56 L 03/22/17 18:24 Resp 18 03/22/17 18:24 BP 136/72 03/22/17 18:24 Pulse Ox 97 03/22/17 18:24 - Orders/Labs/Meds Orders: Active Orders 24 hr Category Date Time Status Sodium Chloride 0.9% [Saline Flush] Med 03/22/17 16:39 Active 10 ml FLUSH ASDIRECTED PRN Sodium Chloride 0.9% [Saline Flush] Med 03/22/17 16:39 Active 2.5 ml FLUSH ASDIRECTED PRN Saline Lock Insert [OM.PC] Stat Oth 03/22/17 16:38 Ordered Medication Orders Sodium Chloride (Normal Saline) 1,000 mls @ 999 mls/hr IV .Bolus ONE Stop: 03/22/17 19:36 Last Admin: 03/22/17 18:38 Dose: 999 mls/hr Sodium Chloride (Saline Flush) 10 ml FLUSH ASDIRECTED PRN PRN Reason: Keep Vein Open Sodium Chloride (Saline Flush) 2.5 ml FLUSH ASDIRECTED PRN PRN Reason: Keep Vein Open Labs: Laboratory Tests 03/22/17 03/22/17 Range/Units 16:45 16:45 WBC 15.50 H (4.0-11.0) K/uL RBC 4.79 (4.50-5.90) M/uL Hgb 14.2 (13.0-17.0) g/dL Hct 41.8 (38.0-50.0) % MCV 87.3 (80.0-98.0) fL MCH 29.6 (27.0-32.0) pg MCHC 34.0 (31.0-37.0) g/dL RDW Std Deviation 44.8 (28.0-62.0) fl RDW Coeff of Theo 14 (11.0-15.0) % Plt Count 233 (150-400) K/uL MPV 9.90 (7.40-12.00) fL Neut % (Auto) 75.5 (48.0-80.0) % Lymph % (Auto) 14.0 L (16.0-40.0) % [place] % (Auto) 8.5 (0.0-15.0) % Eos % (Auto) 1.7 (0.0-7.0) % Baso % (Auto) 0.3 (0.0-1.5) % Neut # (Auto) 11.7 H (1.4-5.7) K/uL Lymph # (Auto) 2.2 (0.6-2.4) K/uL [place] # (Auto) 1.3 H (0.0-0.8) K/uL Eos # (Auto) 0.3 (0.0-0.7) K/uL Baso # (Auto) 0.0 (0.0-0.1) K/uL Nucleated RBC % 0.0 /100WBC Nucleated RBCs # 0 K/uL Sodium 138 (136-146) mmol/L Potassium 4.1 (3.5-5.1) mmol/L Chloride 105 (98-110) mmol/L Carbon Dioxide 20 L (21-31) mmol/L BUN 17 (6.0-23.0) mg/dL Creatinine 0.9 (0.6-1.5) mg/dL Est Cr Clr Drug Dosing 95.19 mL/min Estimated GFR (MDRD) > 60.0 ml/min Glucose 114 H (60-110) mg/dL Calcium 9.9 (8.8-10.8) mg/dL Total Bilirubin 0.6 (0.1-1.5) mg/dL AST 22 (5-40) IU/L ALT 19 (8-54) IU/L Alkaline Phosphatase 62 (40-150) Troponin I < 0.10 (0.0-0.29) NG/ML Total Protein 7.1 (6.0-8.0) g/dL Albumin 4.2 (3.4-4.8) g/dL Globulin 2.9 (2.0-3.5) g/dL Albumin/Globulin Ratio 1.5 (1.3-2.8) Lipase 9956 H (7-80) U/L Meds: Medications Generic Name Dose Route Start Last Admin Trade Name Freq PRN Reason Stop Dose Admin Sodium Chloride 1,000 mls @ 999 mls/hr 03/22/17 18:36 03/22/17 18:38 Normal Saline IV 03/22/17 19:36 999 mls/hr .Bolus ONE Administration Sodium Chloride 10 ml 03/22/17 16:39 Saline Flush FLUSH ASDIRECTED PRN Keep Vein Open Sodium Chloride 2.5 ml 03/22/17 16:39 Saline Flush FLUSH ASDIRECTED PRN Keep Vein Open Discontinued Medications Generic Name Dose Route Start Last Admin Trade Name Cadence PRN Reason Stop Dose Admin Hydromorphone HCl 1 mg 03/22/17 16:39 03/22/17 17:13 Dilaudid IVPUSH 03/22/17 16:40 1 mg Q1H STA Administration Sodium Chloride 1,000 mls @ 999 mls/hr 03/22/17 16:39 03/22/17 17:14 Normal Saline IV 03/22/17 17:39 999 mls/hr .Bolus ONE Administration Ondansetron HCl 4 mg 03/22/17 16:39 03/22/17 17:13 Zofran IVPUSH 03/22/17 16:40 4 mg ONETIME ONE Administration Departure - Departure Time of Disposition: 18:53 Disposition: Admitted As Inpatient 66 Condition: Good Clinical Impression: Acute pancreatitis Qualifiers: Pancreatitis type: biliary Acute pancreatitis complication: no infection or necrosis Qualified Code(s): K85.10 - Biliary acute pancreatitis without necrosis or infection - Discharge Information - My Orders Last 24 Hours: My Active Orders 03/22/17 16:38 Saline Lock Insert [OM.PC] Stat 03/22/17 16:39 Sodium Chloride 0.9% [Saline Flush] 10 ml FLUSH ASDIRECTED PRN Sodium Chloride 0.9% [Saline Flush] 2.5 ml FLUSH ASDIRECTED PRN - Assessment/Plan Last 24 Hours: My Active Orders 03/22/17 16:38 Saline Lock Insert [OM.PC] Stat 03/22/17 16:39 Sodium Chloride 0.9% [Saline Flush] 10 ml FLUSH ASDIRECTED PRN Sodium Chloride 0.9% [Saline Flush] 2.5 ml FLUSH ASDIRECTED PRN
[2017-03-22] MEDS ORDERED: Ondansetron 4 MG/2 ML SDV IVPUSH PRN (18:53)
[2017-03-22] MEDS: Pantoprazole 40 MG Vial IVPUSH SCH (19:24)
[2017-03-22] MEDS: Heparin Sodium 5,000 Units/ML Vial SUBCUT SCH (19:27)
--- NOTE | 2017-03-22 19:28 | PCM.HP ---
H&P History of Present Illness - General Date of Service: 03/22/17 Admit Problem/Dx: Admission Diagnosis/Problem Admission Diagnosis/Problem Pancreatitis Source of Information: Patient History Limitations: Reports: No Limitations - History of Present Illness Initial Comments - Free Text/Narative: 66-year-old male presenting to emergency department with chief complaint of abdominal pain and bloating x5 hours with past medical history of pancreatitis, CABG 3 with stents on Plavix, hypertension hyperlipidemia, and BPH. Patient states that he did have an MRCP this morning as ordered by Dr. Tracy, surgeon, to investigate his recent hospitalization for pancreatitis on 02/27/17. He went home, had some oatmeal and milk, then went for a walk with his dog. When he came home he started to feel bloated with lots of belching. This was followed by a constant crampy mid abdominal pain. He was unable to find a comfortable position so came in to ED for further evaluation. He was recently admitted for pancreatitis on 02/27/17. Initial CT findings on admission showed moderate acute pancreatitis with secondary chronic pancreatitis. There was also noted small gallstones identified without inflammatory changes of the gallbladder and benign-appearing hypodensities within the liver. A right upper quadrant ultrasound that was performed during that admission showed no evidence of gallstones or biliary dilatation. He did have some mild tenderness of the gallbladder on palpation during exam. MRCP performed today, 03/22/17 showed no acute findings within the gallbladder and a grossly unremarkable pancreas and biliary tree. Patient has been seeing Dr. Tracy, surgeon, as follow-up since his recent admission. He currently denies any nausea, vomiting, chest pain, palpitations, shortness breath, syncopal episodes, or focal neurologic deficits. His pain is currently 4 out of 10 and mostly located in the mid abdomen with some radiation into the lower abdomen diffusely. He does have some mild tenderness to palpation in the right upper quadrant. In the emergency department CBC showed mild leukocytosis of 15.5 K most likely secondary to the acute pancreatitis as patient has been afebrile and unremarkable MRCP preformed today. CMP including LFTs and bilirubin were unremarkable. Troponin was negative. Lipase was elevated at 9956. He was given 1 mg of Dilaudid and 2 L of IV normal saline bolus. Patient was admitted for pancreatitis. RUQ Pain Score (Numeric/FACES): 7 - Related Data Allergies/Adverse Reactions: Allergies Allergy/AdvReac Type Severity Reaction Status Date / Time No Known Allergies Allergy Verified 03/22/17 16:30 Home Medications: Home Meds Carvedilol [Coreg] 25 mg PO DAILY 02/27/17 [History] Clopidogrel [Plavix] 75 mg PO DAILY 02/27/17 [History] Finasteride 5 mg PO DAILY 02/27/17 [History] Lisinopril 10 mg PO DAILY 02/27/17 [History] Rosuvastatin Calcium [Crestor] 40 mg PO DAILY 02/27/17 [History] Tamsulosin [Flomax] 0.4 mg PO DAILY 02/27/17 [History] Past Medical History HEENT History: Reports: None Cardiovascular History: Reports: DC, Stents Other Cardiovascular History: DC in 2006, three angioplasty. Triple bypass 2012. Respiratory History: Reports: None Gastrointestinal History: Reports: Pancreatitis Genitourinary History: Reports: BPH Musculoskeletal History: Reports: Muscular Dystrophy Neurological History: Reports: None Psychiatric History: Reports: None Endocrine/Metabolic History: Reports: None Hematologic History: Reports: Other (See Below) Other Hematologic History: DVT affecting left knee Immunologic History: Reports: None Oncologic (Cancer) History: Reports: None Dermatologic History: Reports: None - Infectious Disease History Infectious Disease History: Reports: Chicken Pox, Measles, Mumps - Past Surgical History Head Surgeries/Procedures: Reports: None HEENT Surgical History: Reports: None Cardiovascular Surgical History: Reports: Coronary Artery Bypass Respiratory Surgical History: Reports: None GI Surgical History: Reports: None Male Surgical History: Reports: None Endocrine Surgical History: Reports: None Neurological Surgical History: Reports: None Musculoskeletal Surgical History: Reports: None Oncologic Surgical History: Reports: None Dermatological Surgical History: Reports: None Social & Family History - Family History Family Medical History: Noncontributory - Tobacco Use Smoking Status *Q: Never Smoker Second Hand Smoke Exposure: No - Caffeine Use Caffeine Use: Reports: Coffee - Recreational Drug Use Recreational Drug Use: No H&P Review of Systems - Review of Systems: Review Of Systems: See Below General: Denies: Fever, Chills, Weakness, Fatigue HEENT: Denies: Dysphasia, Sore Throat Pulmonary: Denies: Shortness of Breath, Wheezing, Pleuritic Chest Pain, Cough, Sputum Cardiovascular: Denies: Chest Pain, Palpitations, Edema Gastrointestinal: Reports: Abdominal Pain. Denies: Black Stool, Bloody Stool, Nausea, Vomiting Genitourinary: Denies: Dysuria Musculoskeletal: Reports: Back Pain. Denies: Neck Pain Skin: Denies: Cyanosis Psychiatric: Denies: Confusion, Depression Neurological: Denies: Confusion, Dizziness, Headache Hematologic/Lymphatic: Denies: Anemia Exam - Exam Exam: See Below - Vital Signs Vital Signs: Last Vital Signs Temp 96.7 F 03/22/17 16:31 Pulse 56 L 03/22/17 18:24 Resp 18 03/22/17 18:24 BP 136/72 03/22/17 18:24 Pulse Ox 97 03/22/17 18:24 Weight: 91.172 kg - Exam Quality Assessment: DVT Prophylaxis General: Alert, Oriented, Cooperative HEENT: Conjunctiva Clear, EACs Clear, EOMI, Hearing Intact, Mucosa Moist & Croom , Posterior Pharynx Clear, PERRLA Neck: Supple, Trachea Midline, 2 Lungs: Clear to Auscultation, Normal Respiratory Effort Cardiovascular: Regular Rate, Regular Rhythm, Normal S1, Normal S2, Systolic Murmur GI/Abdominal Exam: Normal Bowel Sounds, Soft, Non-Tender, No Organomegaly, No Distention, No Abnormal Bruit, No Mass, Pelvis Stable (Male) Exam: Deferred Rectal (Males) Exam: Deferred Back Exam: Normal Inspection, Full Range of Motion, NT Extremities: Normal Inspection, Normal Range of Motion, Non-Tender, No Pedal Edema, Normal Capillary Refill Peripheral Pulses: 2+: Radial (L), Radial (R), Posterior Tibial (L), Posterior Tibial (R), Dorsalis Pedis (L), Dorsalis Pedis (R) Skin: Warm, Dry, Intact Neurological: Cranial Nerves Intact Neuro Extensive - Mental Status: Alert, Oriented x3, Normal Mood/Affect, Normal Cognition Neuro Extensive - Motor, Sensory, Reflexes: CN II-XII Intact Psychiatric: Alert, Normal Affect, Normal Mood - Patient Data Result Diagrams: 03/22/17 16:45 03/22/17 16:45 *Q Meaningful Use (ADM) - VTE *Q VTE Criteria *Q: - Stroke *Q Stroke Criteria *Q: - AMI *Q AMI Criteria *Q: - Problem List (1) Acute pancreatitis SNOMED Code(s): 083233000 ICD Code: K85.90 - ACUTE PANCREATITIS WITHOUT NECROSIS OR INFECTION, UNSP Status: Acute Current Visit: Yes Qualifiers: Pancreatitis type: unspecified pancreatitis type Acute pancreatitis complication: no infection or necrosis Qualified Code(s): K85.90 - Acute pancreatitis without necrosis or infection, unspecified (2) BPH (benign prostatic hyperplasia) SNOMED Code(s): 693835065 ICD Code: N40.0 - BENIGN PROSTATIC HYPERPLASIA WITHOUT LOWER URINRY TRACT SYMP Status: Chronic Priority: Low Current Visit: Yes Qualifiers: Lower urinary tract symptom presence: unspecified whether lower urinary tract symptoms present Qualified Code(s): N40.0 - Benign prostatic hyperplasia without lower urinary tract symptoms (3) HTN (hypertension) SNOMED Code(s): 81191021 ICD Code: I10 - ESSENTIAL (PRIMARY) HYPERTENSION Status: Chronic Priority : Medium Current Visit: Yes Qualifiers: Hypertension type: essential hypertension Qualified Code(s): I10 - Essential (primary) hypertension (4) Hyperlipemia SNOMED Code(s): 47141076 ICD Code: E78.5 - HYPERLIPIDEMIA, UNSPECIFIED Status: Chronic Priority: Low Current Visit: Yes Qualifiers: Hyperlipidemia type: unspecified Qualified Code(s): E78.5 - Hyperlipidemia , unspecified (5) S/P CABG x 3 SNOMED Code(s): 675187925, 025252199 ICD Code: Z95.1 - PRESENCE OF AORTOCORONARY BYPASS GRAFT Status: Chronic Priority: Medium Current Visit: Yes Problem List Initiated/Reviewed/Updated: Yes Orders Last 24hrs: Active Orders 24 hr Category Date Time Status Patient Status [ADT] Routine ADT 03/22/17 18:53 Active Antiembolic Devices [RC] PER UNIT ROUTINE Care 03/22/17 18:54 Active Oxygen Therapy [RC] PRN Care 03/22/17 18:53 Active Up With Assistance [RC] ASDIRECTED Care 03/22/17 18:53 Active VTE/DVT Education [RC] PER UNIT ROUTINE Care 03/22/17 18:53 Active Vital Signs [RC] Q4H Care 03/22/17 18:53 Active Nothing per Oral Now Diet [DIET] Diet 03/22/17 Dinner Active CBC W/O DIFF,HEMOGRAM [HEME] AM Lab 03/23/17 05:11 Ordered CBC W/O DIFF,HEMOGRAM [HEME] AM Lab 03/24/17 05:11 Ordered CBC W/O DIFF,HEMOGRAM [HEME] AM Lab 03/25/17 05:11 Ordered COMPREHENSIVE METABOLIC PN,CMP [CHEM] AM Lab 03/23/17 05:11 Ordered COMPREHENSIVE METABOLIC PN,CMP [CHEM] AM Lab 03/24/17 05:11 Ordered COMPREHENSIVE METABOLIC PN,CMP [CHEM] AM Lab 03/25/17 05:11 Ordered COMPREHENSIVE METABOLIC PN,CMP [CHEM] AM Lab 03/26/17 05:11 Ordered LIPASE [CHEM] AM Lab 03/23/17 05:11 Ordered LIPASE [CHEM] AM Lab 03/24/17 05:11 Ordered LIPASE [CHEM] AM Lab 03/25/17 05:11 Ordered LIPASE [CHEM] AM Lab 03/26/17 05:11 Ordered HYDROmorphone [Dilaudid] Med 03/22/17 18:53 Active 1 mg IVPUSH Q2H PRN Heparin Sodium Med 03/22/17 19:00 Active 5,000 units SUBCUT Q12H Lactated Ringers [Ringers, Lactated] 1,000 ml Med 03/22/17 19:00 Active IV ASDIRECTED Ondansetron [Zofran] Med 03/22/17 18:53 Active 4 mg IVPUSH Q4H PRN Pantoprazole [ProTONIX IV] Med 03/22/17 19:15 Ordered 40 mg IVPUSH DAILY Sodium Chloride 0.9% [Normal Saline] 1,000 ml Med 03/22/17 18:36 Active IV .Bolus Sequential Compression Device [OM.PC] Per Unit Routine Oth 03/22/17 18:54 Ordered Resuscitation Status Routine Resus Stat 03/22/17 18:53 Ordered Medication Orders Heparin Sodium (Porcine) (Heparin Sodium) 5,000 units SUBCUT Q12H [facility] Hydromorphone HCl (Dilaudid) 1 mg IVPUSH Q2H PRN PRN Reason: Pain (severe 7-10) Sodium Chloride (Normal Saline) 1,000 mls @ 999 mls/hr IV .Bolus ONE Stop: 03/22/17 19:36 Last Admin: 03/22/17 18:38 Dose: 999 mls/hr Lactated Ringer's (Ringers, Lactated) 1,000 mls @ 250 mls/hr IV ASDIRECTED [facility] Ondansetron HCl (Zofran) 4 mg IVPUSH Q4H PRN PRN Reason: Nausea Pantoprazole Sodium (Protonix Iv) 40 mg IVPUSH DAILY [facility] Sodium Chloride (Saline Flush) 10 ml FLUSH ASDIRECTED PRN PRN Reason: Keep Vein Open Sodium Chloride (Saline Flush) 2.5 ml FLUSH ASDIRECTED PRN PRN Reason: Keep Vein Open Assessment/Plan Comment:: 66-year-old male admitted 02/27/17 for acute pancreatitis with past medical history of CABG 3 with stents on Plavix, hypertension, hyperlipidemia, and BPH. Acute pancreatitis: IV fluids resuscitation at 250 mL per hour LR, nothing by mouth, Zofran for nausea, IV dilaudid 1 mg every 2 hours when necessary pain, Protonix 40 mg IV daily. Once pain is been controlled we will slowly increase diet. Have talked with Dr. Hernández, surgeon, who has been seeing this patient and discussed whether this episode of pancreatitis was influenced by the MRCP preformed today. Patient may need to see GI specialist for follow-up CABG 3: Has recently seen his chief human resources officer after his last admission and reports is doing well. Hypertension: Currently well controlled we'll restart home medications as tolerated. Hyperlipidemia: Recently done by cardiology at [facility] and unremarkable other than a mild increase in triglycerides to the 125. Increase most likely secondary to recent pancreatitis. BPH: Currently controlled we'll resume home medications once we start a diet. VTE proph: Heparin SC, SCD Dispo: 3-4 days.
[2017-03-22] MEDS: Lactated Ringers 1,000 ML IV SCH ×2 (19:29→23:21)
[2017-03-22] MEDS: HYDROmorphone 2 MG/ML SDV IVPUSH PRN (23:17)
[2017-03-23] MEDS: Lactated Ringers 1,000 ML IV SCH ×5 (03:23→20:29)
[2017-03-23] MEDS: HYDROmorphone 2 MG/ML SDV IVPUSH PRN ×2 (05:36→12:12)
[2017-03-23 05:41] LABS: CHLORIDE,CL 111 mmol/L (98-110); SODIUM,NA 143 mmol/L (136-146)
[2017-03-23] MEDS: Heparin Sodium 5,000 Units/ML Vial SUBCUT SCH ×2 (06:07→18:32)
--- NOTE | 2017-03-23 08:13 | PCM.PN ---
- General Info Date of Service: 03/23/17 Admission Dx/Problem (Free Text): Admission Diagnosis/Problem Admission Diagnosis/Problem Pancreatitis Subjective Update: Feeling better today, pain is more located in lower abdomen, cramping in nature intermittently. No nausea. Epigastric pain is much improved. No chest pain or SOB. Functional Status: Reports: Pain Controlled, Ambulating, Urinating - Review of Systems General: Reports: No Symptoms HEENT: Reports: No Symptoms Pulmonary: Reports: No Symptoms. Denies: Shortness of Breath Cardiovascular: Reports: No Symptoms. Denies: Chest Pain Gastrointestinal: Reports: Abdominal Pain (lower across abdomen, cramping intermittently.), Flatus. Denies: Constipation (had BM yesterday prior to admission), Diarrhea, Nausea, Vomiting Genitourinary: Reports: No Symptoms. Denies: Dysuria, Frequency, Burning Neurological: Reports: No Symptoms. Denies: Confusion Psychiatric: Reports: No Symptoms - Patient Data Vitals - Most Recent: Last Vital Signs Temp 97.6 F 03/23/17 04:00 Pulse 67 03/23/17 04:00 Resp 18 03/23/17 04:00 BP 124/64 03/23/17 04:00 Pulse Ox 96 03/23/17 04:00 Weight - Most Recent: 91.17 kg I&O - Last 24 Hours: Intake & Output 03/22/17 03/23/17 03/23/17 22:59 06:59 14:59 Intake Total 1000 Output Total 450 Balance 550 Lab Results Last 24 Hours: Laboratory Results - last 24 hr 03/23/17 03/23/17 Range/Units 05:11 05:11 WBC 6.88 (4.0-11.0) K/uL RBC 4.72 (4.50-5.90) M/uL Hgb 13.7 (13.0-17.0) g/dL Hct 42.0 (38.0-50.0) % MCV 89.0 (80.0-98.0) fL MCH 29.0 (27.0-32.0) pg MCHC 32.6 (31.0-37.0) g/dL RDW Std Deviation 46.4 (28.0-62.0) fl RDW Coeff of Theo 14 (11.0-15.0) % Plt Count 194 (150-400) K/uL MPV 10.20 (7.40-12.00) fL Nucleated RBC % 0.0 /100WBC Nucleated RBCs # 0 K/uL Sodium 143 (136-146) mmol/L Potassium 4.9 (3.5-5.1) mmol/L Chloride 111 H (98-110) mmol/L Carbon Dioxide 24 (21-31) mmol/L BUN 14 (6.0-23.0) mg/dL Creatinine 0.8 (0.6-1.5) mg/dL Est Cr Clr Drug Dosing 107.66 mL/min Estimated GFR (MDRD) > 60.0 ml/min Glucose 99 (60-110) mg/dL Calcium 9.0 (8.8-10.8) mg/dL Total Bilirubin 0.8 (0.1-1.5) mg/dL AST 18 (5-40) IU/L ALT 15 (8-54) IU/L Alkaline Phosphatase 52 (40-150) Total Protein 5.4 L (6.0-8.0) g/dL Albumin 3.4 (3.4-4.8) g/dL Globulin 2.0 (2.0-3.5) g/dL Albumin/Globulin Ratio 1.7 (1.3-2.8) Lipase 1147 H (7-80) U/L Med Orders - Current: Current Medications Clopidogrel Bisulfate (Plavix) 75 mg PO DAILY [facility] Finasteride (Proscar) 5 mg PO DAILY [facility] Heparin Sodium (Porcine) (Heparin Sodium) 5,000 units SUBCUT Q12H [facility] Last Admin: 03/23/17 06:07 Dose: 5,000 units Hydromorphone HCl (Dilaudid) 1 mg IVPUSH Q2H PRN PRN Reason: Pain (severe 7-10) Last Admin: 03/23/17 05:36 Dose: 1 mg Lactated Ringer's (Ringers, Lactated) 1,000 mls @ 250 mls/hr IV ASDIRECTED [facility] Last Admin: 03/23/17 03:23 Dose: 250 mls/hr Ondansetron HCl (Zofran) 4 mg IVPUSH Q4H PRN PRN Reason: Nausea Pantoprazole Sodium (Protonix Iv) 40 mg IVPUSH DAILY [facility] Last Admin: 03/22/17 19:24 Dose: 40 mg Sodium Chloride (Saline Flush) 10 ml FLUSH ASDIRECTED PRN PRN Reason: Keep Vein Open Sodium Chloride (Saline Flush) 2.5 ml FLUSH ASDIRECTED PRN PRN Reason: Keep Vein Open Tamsulosin HCl (Flomax) 0.4 mg PO DAILY [facility] Discontinued Medications Hydromorphone HCl (Dilaudid) 1 mg IVPUSH Q1H STA Stop: 03/22/17 16:40 Last Admin: 03/22/17 17:13 Dose: 1 mg Sodium Chloride (Normal Saline) 1,000 mls @ 999 mls/hr IV .Bolus ONE Stop: 03/22/17 17:39 Last Admin: 03/22/17 17:14 Dose: 999 mls/hr Sodium Chloride (Normal Saline) 1,000 mls @ 999 mls/hr IV .Bolus ONE Stop: 03/22/17 19:36 Last Admin: 03/22/17 18:38 Dose: 999 mls/hr Ondansetron HCl (Zofran) 4 mg IVPUSH ONETIME ONE Stop: 03/22/17 16:40 Last Admin: 03/22/17 17:13 Dose: 4 mg - Exam General: Alert, Oriented, Cooperative, No Acute Distress Neck: Supple Lungs: Clear to Auscultation, Normal Respiratory Effort Cardiovascular: Regular Rate, Regular Rhythm GI/Abdominal Exam: Normal Bowel Sounds, Soft, No Organomegaly, No Distention, No Abnormal Bruit, No Mass, Pelvis Stable, Tender (lower abdomen slightly and epigastric region.) (Male) Exam: No Hernia, Normal Inspection, Normal Prostate, Circumcised Extremities: Normal Inspection, Normal Range of Motion, Non-Tender, No Pedal Edema, Normal Capillary Refill Neurological: No New Focal Deficit Psy/Mental Status: Alert, Normal Affect, Normal Mood - Problem List & Annotations (1) Acute pancreatitis SNOMED Code(s): 091506017 Code(s): K85.90 - ACUTE PANCREATITIS WITHOUT NECROSIS OR INFECTION, UNSP Status: Acute Current Visit: Yes Qualifiers: Pancreatitis type: unspecified pancreatitis type Acute pancreatitis complication: no infection or necrosis Qualified Code(s): K85.90 - Acute pancreatitis without necrosis or infection, unspecified (2) BPH (benign prostatic hyperplasia) SNOMED Code(s): 762921493 Code(s): N40.0 - BENIGN PROSTATIC HYPERPLASIA WITHOUT LOWER URINRY TRACT SYMP Status: Chronic Priority: Low Current Visit: Yes Qualifiers: Lower urinary tract symptom presence: unspecified whether lower urinary tract symptoms present Qualified Code(s): N40.0 - Benign prostatic hyperplasia without lower urinary tract symptoms (3) HTN (hypertension) SNOMED Code(s): 31879885 Code(s): I10 - ESSENTIAL (PRIMARY) HYPERTENSION Status: Chronic Priority : Medium Current Visit: Yes Qualifiers: Hypertension type: essential hypertension Qualified Code(s): I10 - Essential (primary) hypertension (4) Hyperlipemia SNOMED Code(s): 65216635 Code(s): E78.5 - HYPERLIPIDEMIA, UNSPECIFIED Status: Chronic Priority: Low Current Visit: Yes Qualifiers: Hyperlipidemia type: unspecified Qualified Code(s): E78.5 - Hyperlipidemia , unspecified (5) S/P CABG x 3 SNOMED Code(s): 652730240, 990557293 Code(s): Z95.1 - PRESENCE OF AORTOCORONARY BYPASS GRAFT Status: Chronic Priority: Medium Current Visit: Yes - Problem List Review Problem List Initiated/Reviewed/Updated: Yes - My Orders Last 24 Hours: My Active Orders 03/23/17 08:11 Communication Order [RC] PRN 03/23/17 09:00 Clopidogrel [Plavix] 75 mg PO DAILY Finasteride [Proscar] 5 mg PO DAILY Tamsulosin [Flomax] 0.4 mg PO DAILY - Plan Plan:: 66-year-old male admitted 02/27/17 for acute pancreatitis with past medical history of CABG 3 with stents on Plavix, hypertension, hyperlipidemia, and BPH. 1. Acute pancreatitis: improving. Lipase 1147 today. LR 250 mL per hour, Zofran for nausea, IV dilaudid 1 mg every 2 hours when necessary pain, Protonix 40 mg IV daily. Once pain is been controlled we will slowly increase diet. Will arrange patient to see GI specialist, patient requests Dr Frey in [place]. Will stop Finasteride due to recently being started and new pancreatitis. Also noted is that Lisinopril and Crestor may cause pancreatitis as well, but he has been on for 15+ years and would want Dr Pickard's opinion and for him to see GI prior to stopping CAD medications. 2. CABG 3: Stable. 3. Hypertension: Stable, restart Coreg and Lisinopril 4. Hyperlipidemia: Stable. Restart Crestor 5. BPH: Stable, restart Flomax. Hold Finasteride. VTE proph: Heparin Dispo: 3-4 days.
[2017-03-23] MEDS ORDERED: Finasteride 5 MG Tab PO SCH (09:00)
--- NOTE | 2017-03-23 09:20 | PCM.PN ---
- General Info Date of Service: 03/23/17 Admission Dx/Problem (Free Text): Admission Diagnosis/Problem Admission Diagnosis/Problem Pancreatitis - Patient Data Vitals - Most Recent: Last Vital Signs Temp 99.0 F 03/23/17 08:00 Pulse 66 03/23/17 08:00 Resp 18 03/23/17 08:00 BP 136/77 03/23/17 08:00 Pulse Ox 96 03/23/17 08:00 Weight - Most Recent: 91.17 kg I&O - Last 24 Hours: Intake & Output 03/22/17 03/23/17 03/23/17 22:59 06:59 14:59 Intake Total 1000 999 Output Total 450 Balance 550 999 Lab Results Last 24 Hours: Laboratory Results - last 24 hr 03/23/17 03/23/17 Range/Units 05:11 05:11 WBC 6.88 (4.0-11.0) K/uL RBC 4.72 (4.50-5.90) M/uL Hgb 13.7 (13.0-17.0) g/dL Hct 42.0 (38.0-50.0) % MCV 89.0 (80.0-98.0) fL MCH 29.0 (27.0-32.0) pg MCHC 32.6 (31.0-37.0) g/dL RDW Std Deviation 46.4 (28.0-62.0) fl RDW Coeff of Theo 14 (11.0-15.0) % Plt Count 194 (150-400) K/uL MPV 10.20 (7.40-12.00) fL Nucleated RBC % 0.0 /100WBC Nucleated RBCs # 0 K/uL Sodium 143 (136-146) mmol/L Potassium 4.9 (3.5-5.1) mmol/L Chloride 111 H (98-110) mmol/L Carbon Dioxide 24 (21-31) mmol/L BUN 14 (6.0-23.0) mg/dL Creatinine 0.8 (0.6-1.5) mg/dL Est Cr Clr Drug Dosing 107.66 mL/min Estimated GFR (MDRD) > 60.0 ml/min Glucose 99 (60-110) mg/dL Calcium 9.0 (8.8-10.8) mg/dL Total Bilirubin 0.8 (0.1-1.5) mg/dL AST 18 (5-40) IU/L ALT 15 (8-54) IU/L Alkaline Phosphatase 52 (40-150) Total Protein 5.4 L (6.0-8.0) g/dL Albumin 3.4 (3.4-4.8) g/dL Globulin 2.0 (2.0-3.5) g/dL Albumin/Globulin Ratio 1.7 (1.3-2.8) Lipase 1147 H (7-80) U/L Med Orders - Current: Current Medications Clopidogrel Bisulfate (Plavix) 75 mg PO DAILY [facility] Heparin Sodium (Porcine) (Heparin Sodium) 5,000 units SUBCUT Q12H [facility] Last Admin: 03/23/17 06:07 Dose: 5,000 units Hydromorphone HCl (Dilaudid) 1 mg IVPUSH Q2H PRN PRN Reason: Pain (severe 7-10) Last Admin: 03/23/17 05:36 Dose: 1 mg Lactated Ringer's (Ringers, Lactated) 1,000 mls @ 250 mls/hr IV ASDIRECTED [facility] Last Admin: 03/23/17 08:15 Dose: 250 mls/hr Ondansetron HCl (Zofran) 4 mg IVPUSH Q4H PRN PRN Reason: Nausea Pantoprazole Sodium (Protonix Iv) 40 mg IVPUSH DAILY [facility] Last Admin: 03/22/17 19:24 Dose: 40 mg Sodium Chloride (Saline Flush) 10 ml FLUSH ASDIRECTED PRN PRN Reason: Keep Vein Open Sodium Chloride (Saline Flush) 2.5 ml FLUSH ASDIRECTED PRN PRN Reason: Keep Vein Open Tamsulosin HCl (Flomax) 0.4 mg PO DAILY [facility] Discontinued Medications Finasteride (Proscar) 5 mg PO DAILY [facility] Hydromorphone HCl (Dilaudid) 1 mg IVPUSH Q1H STA Stop: 03/22/17 16:40 Last Admin: 03/22/17 17:13 Dose: 1 mg Sodium Chloride (Normal Saline) 1,000 mls @ 999 mls/hr IV .Bolus ONE Stop: 03/22/17 17:39 Last Admin: 03/22/17 17:14 Dose: 999 mls/hr Sodium Chloride (Normal Saline) 1,000 mls @ 999 mls/hr IV .Bolus ONE Stop: 03/22/17 19:36 Last Admin: 03/22/17 18:38 Dose: 999 mls/hr Ondansetron HCl (Zofran) 4 mg IVPUSH ONETIME ONE Stop: 03/22/17 16:40 Last Admin: 03/22/17 17:13 Dose: 4 mg - My Orders Last 24 Hours: My Active Orders 03/23/17 08:11 Communication Order [RC] PRN 03/23/17 09:00 Clopidogrel [Plavix] 75 mg PO DAILY Tamsulosin [Flomax] 0.4 mg PO DAILY - Plan Plan:: 66-year-old male admitted 02/27/17 for acute pancreatitis with past medical history of CABG 3 with stents on Plavix, hypertension, hyperlipidemia, and BPH. Acute pancreatitis: IV fluids resuscitation at 250 mL per hour LR, nothing by mouth, Zofran for nausea, IV dilaudid 1 mg every 2 hours when necessary pain, Protonix 40 mg IV daily. Once pain is been controlled we will slowly increase diet. Have talked with Dr. Hernández, surgeon, who has been seeing this patient and discussed whether this episode of pancreatitis was influenced by the MRCP preformed today. Patient may need to see GI specialist for follow-up CABG 3: Has recently seen his director client after his last admission and reports is doing well. Hypertension: Currently well controlled we'll restart home medications as tolerated. Hyperlipidemia: Recently done by cardiology at [facility] and unremarkable other than a mild increase in triglycerides to the 125. Increase most likely secondary to recent pancreatitis. BPH: Currently controlled we'll resume home medications once we start a diet. VTE proph: Heparin SC, SCD Dispo: 3-4 days.
[2017-03-23] MEDS: Pantoprazole 40 MG Vial IVPUSH SCH (09:27)
[2017-03-23] MEDS: Clopidogrel 75 MG Tab PO SCH (09:28)
[2017-03-23] MEDS: Tamsulosin 0.4 MG Cap.ER PO SCH (09:28)
[2017-03-23] MEDS: Rosuvastatin 10 MG Tab PO SCH (09:38)
[2017-03-23] MEDS: Lisinopril 10 MG Tab PO SCH (09:38)
[2017-03-23] MEDS: Carvedilol 25 MG Tab PO SCH (09:38)
[2017-03-23] MEDS ORDERED: HYDROmorphone 2 MG/ML Syringe IVPUSH PRN (12:00)
[2017-03-23] MEDS ORDERED: HYDROmorphone 1 MG/ML Syringe IVPUSH PRN (12:00)
[2017-03-24] MEDS: Lactated Ringers 1,000 ML IV SCH ×2 (01:10→05:19)
[2017-03-24 04:58] LABS: CHLORIDE,CL 110 mmol/L (98-110); SODIUM,NA 140 mmol/L (136-146)
[2017-03-24] MEDS: Heparin Sodium 5,000 Units/ML Vial SUBCUT SCH (07:28)
[2017-03-24] MEDS ORDERED: Lactated Ringers 1,000 ML IV SCH (07:49)
[2017-03-24] MEDS: Pantoprazole 40 MG Vial IVPUSH SCH (08:21)
[2017-03-24] MEDS: Carvedilol 25 MG Tab PO SCH ×2 (08:25→09:00)
[2017-03-24] MEDS: Tamsulosin 0.4 MG Cap.ER PO SCH (08:25)
[2017-03-24] MEDS: Lisinopril 10 MG Tab PO SCH ×2 (08:26→09:00)
[2017-03-24] MEDS: Rosuvastatin 10 MG Tab PO SCH (08:26)
[2017-03-24] MEDS: Clopidogrel 75 MG Tab PO SCH (08:26)
--- NOTE | 2017-03-24 09:19 | PCM.PN ---
- General Info Date of Service: 03/24/17 Admission Dx/Problem (Free Text): Admission Diagnosis/Problem Admission Diagnosis/Problem Pancreatitis Subjective Update: João is doing better this am, has not used pain medication since yesterday afternoon. Still has some intermittent cramping to lower abdomen, especially when up ambulating. he is passing gas, no diarrhea. Last BM was day before admission, which was normal. No chest pain or SOB. Has complaint of puffy hands. Functional Status: Reports: Pain Controlled, Ambulating (multiple times around the loop during the day. ) - Review of Systems General: Reports: No Symptoms. Denies: Fever, Fatigue, Malaise HEENT: Reports: No Symptoms. Denies: Glasses, Sore Throat, Rhinitis, Visual Changes Pulmonary: Reports: No Symptoms. Denies: Shortness of Breath, Cough Cardiovascular: Reports: Edema (puffy hands). Denies: Chest Pain, Palpitations Gastrointestinal: Reports: Flatus, Other (cramping to lower abdomen especially when walking. ). Denies: Abdominal Pain, Diarrhea, Nausea, Vomiting Genitourinary: Reports: No Symptoms. Denies: Dysuria, Frequency, Burning Musculoskeletal: Reports: No Symptoms Neurological: Reports: No Symptoms Psychiatric: Reports: No Symptoms - Patient Data Vitals - Most Recent: Last Vital Signs Temp 97.9 F 03/24/17 04:00 Pulse 65 03/24/17 04:00 Resp 18 03/24/17 04:00 BP 117/62 03/24/17 04:00 Pulse Ox 93 L 03/24/17 04:00 Weight - Most Recent: 91.17 kg I&O - Last 24 Hours: Intake & Output 03/23/17 03/24/17 03/24/17 22:59 06:59 14:59 Intake Total 1049 4205 Balance 1049 4205 Lab Results Last 24 Hours: Laboratory Results - last 24 hr 03/24/17 03/24/17 03/24/17 Range/Units 04:30 04:30 04:30 WBC 7.16 (4.0-11.0) K/uL RBC 4.11 L (4.50-5.90) M/uL Hgb 12.1 L (13.0-17.0) g/dL Hct 35.9 L (38.0-50.0) % MCV 87.3 (80.0-98.0) fL MCH 29.4 (27.0-32.0) pg MCHC 33.7 (31.0-37.0) g/dL RDW Std Deviation 44.7 (28.0-62.0) fl RDW Coeff of Theo 14 (11.0-15.0) % Plt Count 154 (150-400) K/uL MPV 9.90 (7.40-12.00) fL Nucleated RBC % 0.0 /100WBC Nucleated RBCs # 0 K/uL Sodium 140 (136-146) mmol/L Potassium 3.8 (3.5-5.1) mmol/L Chloride 110 (98-110) mmol/L Carbon Dioxide 21 (21-31) mmol/L BUN 10 (6.0-23.0) mg/dL Creatinine 0.7 (0.6-1.5) mg/dL Est Cr Clr Drug Dosing 123.04 mL/min Estimated GFR (MDRD) > 60.0 ml/min Glucose 79 (60-110) mg/dL Calcium 8.3 L (8.8-10.8) mg/dL Total Bilirubin 0.9 (0.1-1.5) mg/dL AST 15 (5-40) IU/L ALT 12 (8-54) IU/L Alkaline Phosphatase 44 (40-150) Total Protein 4.9 L (6.0-8.0) g/dL Albumin 2.9 L (3.4-4.8) g/dL Globulin 2.0 (2.0-3.5) g/dL Albumin/Globulin Ratio 1.5 (1.3-2.8) Lipase 323 H (7-80) U/L Med Orders - Current: Current Medications Carvedilol (Coreg) 25 mg PO DAILY [facility] Last Admin: 03/23/17 09:38 Dose: 25 mg Clopidogrel Bisulfate (Plavix) 75 mg PO DAILY [facility] Last Admin: 03/24/17 08:26 Dose: 75 mg Heparin Sodium (Porcine) (Heparin Sodium) 5,000 units SUBCUT Q12H [facility] Last Admin: 03/24/17 07:28 Dose: 5,000 units Hydromorphone HCl (Dilaudid) 1 mg IVPUSH Q2H PRN PRN Reason: Pain (severe 7-10) Lactated Ringer's (Ringers, Lactated) 1,000 mls @ 125 mls/hr IV ASDIRECTED [facility] Last Admin: 03/24/17 08:17 Dose: 125 mls/hr Lisinopril (Prinivil) 10 mg PO DAILY [facility] Last Admin: 03/23/17 09:38 Dose: 10 mg Ondansetron HCl (Zofran) 4 mg IVPUSH Q4H PRN PRN Reason: Nausea Pantoprazole Sodium (Protonix Iv) 40 mg IVPUSH DAILY [facility] Last Admin: 03/24/17 08:21 Dose: 40 mg Rosuvastatin Calcium (Crestor) 40 mg PO DAILY [facility] Last Admin: 03/24/17 08:26 Dose: 40 mg Sodium Chloride (Saline Flush) 10 ml FLUSH ASDIRECTED PRN PRN Reason: Keep Vein Open Sodium Chloride (Saline Flush) 2.5 ml FLUSH ASDIRECTED PRN PRN Reason: Keep Vein Open Tamsulosin HCl (Flomax) 0.4 mg PO DAILY [facility] Last Admin: 03/24/17 08:25 Dose: 0.4 mg Discontinued Medications Finasteride (Proscar) 5 mg PO DAILY [facility] Last Admin: 03/23/17 09:27 Dose: 5 mg Hydromorphone HCl (Dilaudid) 1 mg IVPUSH Q1H STA Stop: 03/22/17 16:40 Last Admin: 03/22/17 17:13 Dose: 1 mg Hydromorphone HCl (Dilaudid) 1 mg IVPUSH Q2H PRN PRN Reason: Pain (severe 7-10) Stop: 03/23/17 13:00 Last Admin: 03/23/17 12:12 Dose: 1 mg Hydromorphone HCl (Dilaudid) 1 mg IVPUSH Q2H PRN PRN Reason: Pain (severe 7-10) Sodium Chloride (Normal Saline) 1,000 mls @ 999 mls/hr IV .Bolus ONE Stop: 03/22/17 17:39 Last Admin: 03/22/17 17:14 Dose: 999 mls/hr Sodium Chloride (Normal Saline) 1,000 mls @ 999 mls/hr IV .Bolus ONE Stop: 03/22/17 19:36 Last Admin: 03/22/17 18:38 Dose: 999 mls/hr Lactated Ringer's (Ringers, Lactated) 1,000 mls @ 250 mls/hr IV ASDIRECTED [facility] Last Admin: 03/24/17 05:19 Dose: 250 mls/hr Ondansetron HCl (Zofran) 4 mg IVPUSH ONETIME ONE Stop: 03/22/17 16:40 Last Admin: 03/22/17 17:13 Dose: 4 mg - Exam General: Alert, Oriented, Cooperative, No Acute Distress Neck: Supple Lungs: Clear to Auscultation, Normal Respiratory Effort Cardiovascular: Regular Rate, Regular Rhythm GI/Abdominal Exam: Normal Bowel Sounds, Soft, Non-Tender, No Organomegaly, No Distention, No Mass. No: Guarding Extremities: Normal Inspection, Normal Range of Motion, Non-Tender, No Pedal Edema, Normal Capillary Refill, Other (scant puffiness to hands, no other edema to extremities noted.) Neurological: No New Focal Deficit Psy/Mental Status: Alert, Normal Affect, Normal Mood - Problem List & Annotations (1) Acute pancreatitis SNOMED Code(s): 496573823 Code(s): K85.90 - ACUTE PANCREATITIS WITHOUT NECROSIS OR INFECTION, UNSP Status: Acute Current Visit: Yes Qualifiers: Pancreatitis type: unspecified pancreatitis type Acute pancreatitis complication: no infection or necrosis Qualified Code(s): K85.90 - Acute pancreatitis without necrosis or infection, unspecified (2) BPH (benign prostatic hyperplasia) SNOMED Code(s): 797605113 Code(s): N40.0 - BENIGN PROSTATIC HYPERPLASIA WITHOUT LOWER URINRY TRACT SYMP Status: Chronic Priority: Low Current Visit: Yes Qualifiers: Lower urinary tract symptom presence: unspecified whether lower urinary tract symptoms present Qualified Code(s): N40.0 - Benign prostatic hyperplasia without lower urinary tract symptoms (3) HTN (hypertension) SNOMED Code(s): 43519542 Code(s): I10 - ESSENTIAL (PRIMARY) HYPERTENSION Status: Chronic Priority : Medium Current Visit: Yes Qualifiers: Hypertension type: essential hypertension Qualified Code(s): I10 - Essential (primary) hypertension (4) Hyperlipemia SNOMED Code(s): 26690239 Code(s): E78.5 - HYPERLIPIDEMIA, UNSPECIFIED Status: Chronic Priority: Low Current Visit: Yes Qualifiers: Hyperlipidemia type: unspecified Qualified Code(s): E78.5 - Hyperlipidemia , unspecified (5) S/P CABG x 3 SNOMED Code(s): 907173797, 786761377 Code(s): Z95.1 - PRESENCE OF AORTOCORONARY BYPASS GRAFT Status: Chronic Priority: Medium Current Visit: Yes - Problem List Review Problem List Initiated/Reviewed/Updated: Yes - My Orders Last 24 Hours: My Active Orders 03/23/17 09:00 Clopidogrel [Plavix] 75 mg PO DAILY Tamsulosin [Flomax] 0.4 mg PO DAILY 03/23/17 09:20 Communication Order [RC] PRN 03/23/17 09:30 Carvedilol [Coreg] 25 mg PO DAILY Lisinopril [Prinivil] 10 mg PO DAILY Rosuvastatin [Crestor] 40 mg PO DAILY 03/24/17 07:49 Lactated Ringers [Ringers, Lactated] 1,000 ml IV ASDIRECTED 03/24/17 Breakfast Clear Liquid Diet [DIET] - Plan Plan:: 66-year-old male admitted 02/27/17 for acute pancreatitis with past medical history of CABG 3 with stents on Plavix, hypertension, hyperlipidemia, and BPH. 1. Acute pancreatitis: Continues to improve. Lipase 323 today. Will decrease LR to 125 mL per hour. Discontinue Dilaudid. Protonix 40 mg IV daily. Will advance diet to CL today and monitor. Finasteride stopped yesterday due to recently being started and new pancreatitis. Follow up with GI, Dr Hair scheduled as outpatient. 2. CABG 3: Stable. 3. Hypertension: Stable, Continue Coreg and Lisinopril 4. Hyperlipidemia: Stable. Continue Crestor 5. BPH: Stable, Continue Flomax. Hold Finasteride. VTE proph: Heparin Dispo: 1-2 days
--- NOTE | 2017-03-24 12:13 | PCM.DCSUM1 ---
Discharge Summary - Hospital Course Brief History: 66-year-old male presenting to emergency department with chief complaint of abdominal pain and bloating x5 hours with past medical history of pancreatitis, CABG 3 with stents on Plavix, hypertension hyperlipidemia, and BPH. Patient states that he did have an MRCP this morning as ordered by Dr. Tracy, surgeon, to investigate his recent hospitalization for pancreatitis on . He went home, had some oatmeal and milk, then went for a walk with his dog. When he came home he started to feel bloated with lots of belching. This was followed by a constant crampy mid abdominal pain. He was unable to find a comfortable position so came in to ED for further evaluation. He was recently admitted for pancreatitis on 02/27/17. Initial CT findings on admission showed moderate acute pancreatitis with secondary chronic pancreatitis. There was also noted small gallstones identified without inflammatory changes of the gallbladder and benign-appearing hypodensities within the liver. A right upper quadrant ultrasound that was performed during that admission showed no evidence of gallstones or biliary dilatation. He did have some mild tenderness of the gallbladder on palpation during exam. MRCP performed today, 03/22/17 showed no acute findings within the gallbladder and a grossly unremarkable pancreas and biliary tree. Patient has been seeing Dr. Tracy, surgeon, as follow-up since his recent admission. He currently denies any nausea, vomiting, chest pain, palpitations, shortness breath, syncopal episodes, or focal neurologic deficits. His pain is currently 4 out of 10 and mostly located in the mid abdomen with some radiation into the lower abdomen diffusely. He does have some mild tenderness to palpation in the right upper quadrant. In the emergency department CBC showed mild leukocytosis of 15.5 K most likely secondary to the acute pancreatitis as patient has been afebrile and unremarkable MRCP preformed today. CMP including LFTs and bilirubin were unremarkable. Troponin was negative. Lipase was elevated at 9956. He was given 1 mg of Dilaudid and 2 L of IV normal saline bolus. Patient was admitted for pancreatitis. - Discharge Data Discharge Date: 03/24/17 Discharge Disposition: Home, Self-Care 01 Condition: Good - Discharge Diagnosis/Problem(s) (1) Acute pancreatitis SNOMED Code(s): 394309872 ICD Code: K85.90 - ACUTE PANCREATITIS WITHOUT NECROSIS OR INFECTION, UNSP Status: Acute Current Visit: Yes Qualifiers: Pancreatitis type: unspecified pancreatitis type Acute pancreatitis complication: no infection or necrosis Qualified Code(s): K85.90 - Acute pancreatitis without necrosis or infection, unspecified (2) BPH (benign prostatic hyperplasia) SNOMED Code(s): 162436337 ICD Code: N40.0 - BENIGN PROSTATIC HYPERPLASIA WITHOUT LOWER URINRY TRACT SYMP Status: Chronic Priority: Low Current Visit: Yes Qualifiers: Lower urinary tract symptom presence: unspecified whether lower urinary tract symptoms present Qualified Code(s): N40.0 - Benign prostatic hyperplasia without lower urinary tract symptoms (3) HTN (hypertension) SNOMED Code(s): 87998074 ICD Code: I10 - ESSENTIAL (PRIMARY) HYPERTENSION Status: Chronic Priority : Medium Current Visit: Yes Qualifiers: Hypertension type: essential hypertension Qualified Code(s): I10 - Essential (primary) hypertension (4) Hyperlipemia SNOMED Code(s): 94958766 ICD Code: E78.5 - HYPERLIPIDEMIA, UNSPECIFIED Status: Chronic Priority: Low Current Visit: Yes Qualifiers: Hyperlipidemia type: unspecified Qualified Code(s): E78.5 - Hyperlipidemia , unspecified (5) S/P CABG x 3 SNOMED Code(s): 967359288, 373317974 ICD Code: Z95.1 - PRESENCE OF AORTOCORONARY BYPASS GRAFT Status: Chronic Priority: Medium Current Visit: Yes - Patient Instructions Diet: Heart Healthy Diet, Full Liquid Diet (low fat), GI Soft/Low Residue/Low Fiber Activity: As Tolerated, No Strenuous Activities, Rest and Relax Today Driving: Do Not Drive Showering/Bathing: May Shower Notify Provider of: Fever, Increased Pain, Swelling and Redness, Drainage, Nausea and/or Vomiting - Discharge Plan Prescriptions/Med Rec: Finasteride [Proscar] 5 mg PO DAILY #1 tablet Home Medications: Home Meds Carvedilol [Coreg] 25 mg PO DAILY 02/27/17 [History] Clopidogrel [Plavix] 75 mg PO DAILY 02/27/17 [History] Lisinopril 10 mg PO DAILY 02/27/17 [History] Rosuvastatin Calcium [Crestor] 40 mg PO DAILY 02/27/17 [History] Tamsulosin [Flomax] 0.4 mg PO DAILY 02/27/17 [History] Finasteride [Proscar] 5 mg PO DAILY #1 tablet 03/24/17 [Rx] Patient Handouts: Acute Pancreatitis, [id number] Referrals: Simba Chapman MD [Primary Care Provider] - Kyle Hair MD [Ordering Only Provider] - 05/10/17 3:00 pm - Discharge Summary/Plan Comment DC Time >30 min.: No Discharge Summary/Plan Comment: Discharge Diagnoses: Acute pancreatitis, possible gallstone HTN Hx CAD Hx CABG x4 João was admitted and treated for acute pancreatitis which started after having MRCP, with no contrast, which showed no gallstones. Previous admission on February 27, CT showed possible gallstones and abdominal us after showed no stones. He was treated here with IVF, bowel rest and Dilaudid for pain control. Lipase today has decreased to 323 from 9900 on admission. Pain is much better and he is tolerating clear liquid diet. With this reoccurrence, gallstone pancreatitis is a concern and we will arrange follow up with GI specialist/ general surgery in [place]. I did speak with Dr Jaime's with GI who recommended obtaining appointment with general surgery for removal of gallbladder, which patient requests to be done in [place] due to his [employer] [employer] [facility] being there. Today he feels good to be discharged home. He is to continue [place] low fat diet for next few days and slow advance to low fat bland and regular diet as tolerated. he is to return to ED or clinic if any concerns should arise. - General Info Date of Service: 03/24/17 Admission Dx/Problem (Free Text: Admission Diagnosis/Problem Admission Diagnosis/Problem Pancreatitis Subjective Update: Doing well this morning. No chest pain or SOB. Abdominal pain is better, no pain medication since yesterday. Tolerating CL diet and ok with discharge home today. Appointments being arranged with general surgeon and GI specialist in [place]. Functional Status: Reports: Pain Controlled, Tolerating Diet, Ambulating, Urinating - Review of Systems General: Reports: No Symptoms. Denies: Fever Pulmonary: Reports: No Symptoms. Denies: Shortness of Breath Cardiovascular: Reports: No Symptoms. Denies: Chest Pain Gastrointestinal: Reports: No Symptoms, Flatus. Denies: Abdominal Pain, Nausea , Vomiting Genitourinary: Reports: No Symptoms. Denies: Dysuria, Frequency, Burning Neurological: Reports: No Symptoms Psychiatric: Reports: No Symptoms - Patient Data Vitals - Most Recent: Last Vital Signs Temp 98.4 F 03/24/17 08:00 Pulse 64 03/24/17 09:00 Resp 18 03/24/17 08:00 BP 106/58 L 03/24/17 09:00 Pulse Ox 93 L 03/24/17 08:00 Weight - Most Recent: 91.17 kg I&O - Last 24 hours: Intake & Output 03/23/17 03/24/17 03/24/17 22:59 06:59 14:59 Intake Total 1049 4205 Balance 1049 4205 Lab Results - Last 24 hrs: Laboratory Results - last 24 hr 03/24/17 03/24/17 03/24/17 Range/Units 04:30 04:30 04:30 WBC 7.16 (4.0-11.0) K/uL RBC 4.11 L (4.50-5.90) M/uL Hgb 12.1 L (13.0-17.0) g/dL Hct 35.9 L (38.0-50.0) % MCV 87.3 (80.0-98.0) fL MCH 29.4 (27.0-32.0) pg MCHC 33.7 (31.0-37.0) g/dL RDW Std Deviation 44.7 (28.0-62.0) fl RDW Coeff of Theo 14 (11.0-15.0) % Plt Count 154 (150-400) K/uL MPV 9.90 (7.40-12.00) fL Nucleated RBC % 0.0 /100WBC Nucleated RBCs # 0 K/uL Sodium 140 (136-146) mmol/L Potassium 3.8 (3.5-5.1) mmol/L Chloride 110 (98-110) mmol/L Carbon Dioxide 21 (21-31) mmol/L BUN 10 (6.0-23.0) mg/dL Creatinine 0.7 (0.6-1.5) mg/dL Est Cr Clr Drug Dosing 123.04 mL/min Estimated GFR (MDRD) > 60.0 ml/min Glucose 79 (60-110) mg/dL Calcium 8.3 L (8.8-10.8) mg/dL Total Bilirubin 0.9 (0.1-1.5) mg/dL AST 15 (5-40) IU/L ALT 12 (8-54) IU/L Alkaline Phosphatase 44 (40-150) Total Protein 4.9 L (6.0-8.0) g/dL Albumin 2.9 L (3.4-4.8) g/dL Globulin 2.0 (2.0-3.5) g/dL Albumin/Globulin Ratio 1.5 (1.3-2.8) Lipase 323 H (7-80) U/L Med Orders - Current: Current Medications Carvedilol (Coreg) 25 mg PO DAILY [facility] Last Admin: 03/24/17 09:00 Dose: Not Given Clopidogrel Bisulfate (Plavix) 75 mg PO DAILY [facility] Last Admin: 03/24/17 08:26 Dose: 75 mg Heparin Sodium (Porcine) (Heparin Sodium) 5,000 units SUBCUT Q12H [facility] Last Admin: 03/24/17 07:28 Dose: 5,000 units Hydromorphone HCl (Dilaudid) 1 mg IVPUSH Q2H PRN PRN Reason: Pain (severe 7-10) Lactated Ringer's (Ringers, Lactated) 1,000 mls @ 125 mls/hr IV ASDIRECTED [facility] Last Admin: 03/24/17 08:17 Dose: 125 mls/hr Lisinopril (Prinivil) 10 mg PO DAILY [facility] Last Admin: 03/24/17 09:00 Dose: Not Given Ondansetron HCl (Zofran) 4 mg IVPUSH Q4H PRN PRN Reason: Nausea Pantoprazole Sodium (Protonix Iv) 40 mg IVPUSH DAILY [facility] Last Admin: 03/24/17 08:21 Dose: 40 mg Rosuvastatin Calcium (Crestor) 40 mg PO DAILY [facility] Last Admin: 03/24/17 08:26 Dose: 40 mg Sodium Chloride (Saline Flush) 10 ml FLUSH ASDIRECTED PRN PRN Reason: Keep Vein Open Sodium Chloride (Saline Flush) 2.5 ml FLUSH ASDIRECTED PRN PRN Reason: Keep Vein Open Tamsulosin HCl (Flomax) 0.4 mg PO DAILY [facility] Last Admin: 03/24/17 08:25 Dose: 0.4 mg Discontinued Medications Finasteride (Proscar) 5 mg PO DAILY [facility] Last Admin: 03/23/17 09:27 Dose: 5 mg Hydromorphone HCl (Dilaudid) 1 mg IVPUSH Q1H STA Stop: 03/22/17 16:40 Last Admin: 03/22/17 17:13 Dose: 1 mg Hydromorphone HCl (Dilaudid) 1 mg IVPUSH Q2H PRN PRN Reason: Pain (severe 7-10) Stop: 03/23/17 13:00 Last Admin: 03/23/17 12:12 Dose: 1 mg Hydromorphone HCl (Dilaudid) 1 mg IVPUSH Q2H PRN PRN Reason: Pain (severe 7-10) Sodium Chloride (Normal Saline) 1,000 mls @ 999 mls/hr IV .Bolus ONE Stop: 03/22/17 17:39 Last Admin: 03/22/17 17:14 Dose: 999 mls/hr Sodium Chloride (Normal Saline) 1,000 mls @ 999 mls/hr IV .Bolus ONE Stop: 03/22/17 19:36 Last Admin: 03/22/17 18:38 Dose: 999 mls/hr Lactated Ringer's (Ringers, Lactated) 1,000 mls @ 250 mls/hr IV ASDIRECTED [facility] Last Admin: 03/24/17 05:19 Dose: 250 mls/hr Ondansetron HCl (Zofran) 4 mg IVPUSH ONETIME ONE Stop: 03/22/17 16:40 Last Admin: 03/22/17 17:13 Dose: 4 mg - Exam General: Reports: Alert, Oriented, Cooperative, No Acute Distress Neck: Reports: Supple Lungs: Reports: Clear to Auscultation, Normal Respiratory Effort Cardiovascular: Reports: Regular Rate, Regular Rhythm GI/Abdominal Exam: Normal Bowel Sounds, Soft, Non-Tender, No Organomegaly, No Distention, No Abnormal Bruit, No Mass, Pelvis Stable Neurological: Reports: No New Focal Deficit Psy/Mental Status: Reports: Alert, Normal Affect, Normal Mood *Q Meaningful Use (DIS) - VTE *Q VTE Criteria *Q: - Stroke *Q Stroke Criteria *Q: - AMI *Q AMI Criteria *Q:
== END 2017-03-24 13:15 | disposition home or self-care (01) | DRG 440 ==
LOC: MW.ED 16:04 → MW.MS 18:20
PROVIDERS: ADMIT Family Medicine; ATTEND Family Medicine
DX: K85.10 Biliary acute pancreatitis without necrosis or infection (principal); I25.2 Old myocardial infarction; K85.90 Acute pancreatitis without necrosis or infection, unspecified; I25.10 Atherosclerotic heart disease of native coronary artery without angina pectoris; I10 Essential (primary) hypertension; E78.5 Hyperlipidemia, unspecified; N40.0 Benign prostatic hyperplasia without lower urinary tract symptoms; Z79.899 Other long term (current) drug therapy; Z95.5 Presence of coronary angioplasty implant and graft; Z95.1 Presence of aortocoronary bypass graft; Z79.01 Long term (current) use of anticoagulants; Z86.718 Personal history of other venous thrombosis and embolism; K76.89 Other specified diseases of liver; Z87.19 Personal history of other diseases of the digestive system; M51.36 Other intervertebral disc degeneration, lumbar region
CPT/HCPCS: 36415; 74181; 80053; 83690; 84484; 85025; 96361; 96374; 96375; 99285; J1170; J2405; J7040; 85027; 99284; A9270-GY; C9113; J1644; J7120

== ENCOUNTER 2017-09-19 12:12 | Inpatient (IN) | payer MEDICARE ==
[2017-09-19] MEDS ORDERED: Ondansetron 4 MG/2 ML SDV IVPUSH ONE (12:14)
[2017-09-19] MEDS ORDERED: Sodium Chloride 0.9% 1,000 ML IV SCH (12:15)
--- NOTE | 2017-09-19 12:15 | EDM.PDOC ---
ED HPI GENERAL MEDICAL PROBLEM - General Chief Complaint: Abdominal Pain Stated Complaint: ABD PAIN Time Seen by Provider: 09/19/17 12:15 Source of Information: Reports: Patient - History of Present Illness INITIAL COMMENTS - FREE TEXT/NARRATIVE: HISTORY AND PHYSICAL: History of present illness: [Patient with history of pancreatitis presents with epigastric pain 8 out of 10 nonradiating patient states similar to previous symptoms No fever vomiting chills sweats ]halina Review of systems: As per history of present illness and below otherwise all systems reviewed and negative. Past medical history: As per history of present illness and as reviewed below otherwise noncontributory. Surgical history: As per history of present illness and as reviewed below otherwise noncontributory. Social history: No reported history of drug or alcohol abuse. Family history: As per history of present illness and as reviewed below otherwise noncontributory. Physical exam: HEENT: Atraumatic, normocephalic, pupils reactive, negative for conjunctival pallor or scleral icterus, mucous membranes moist, throat clear, neck supple, nontender, trachea midline. Lungs: Clear to auscultation, breath sounds equal bilaterally, chest nontender. Heart: S1S2, regular, negative for clicks, rubs, or JVD. Abdomen: Soft, nondistended, nontender. Negative for masses or hepatosplenomegaly. Negative for costovertebral tenderness. Pelvis: Stable nontender. Genitourinary: Deferred. Rectal: Deferred. Extremities: Atraumatic, negative for cords or calf pain. Neurovascular unremarkable. Neuro: Awake, alert, oriented. Cranial nerves II through XII unremarkable. Cerebellum unremarkable. Motor and sensory unremarkable throughout. Exam nonfocal. Diagnostics: [CBC CMP troponin lipase CT abdomen pelvis with contrast ] Therapeutics: [] normal saline Proton X 80 mg IV Zofran 8 mg IV Morphine 2 mg IV Impression: Pancreatitis Definitive disposition and diagnosis as appropriate pending reevaluation and review of above. Upper Abdominal Pain Score (Numeric/FACES): 6 - Related Data Allergies Allergy/AdvReac Type Severity Reaction Status Date / Time No Known Allergies Allergy Verified 03/22/17 16:30 Home Meds: Home Meds Carvedilol [Coreg] 25 mg PO DAILY 02/27/17 [History] Clopidogrel [Plavix] 75 mg PO DAILY 02/27/17 [History] Lisinopril 10 mg PO DAILY 02/27/17 [History] Rosuvastatin Calcium [Crestor] 40 mg PO DAILY 02/27/17 [History] Tamsulosin [Flomax] 0.4 mg PO DAILY 02/27/17 [History] Finasteride [Proscar] 5 mg PO DAILY #1 tablet 03/24/17 [Rx] Past Medical History HEENT History: Reports: None Cardiovascular History: Reports: [place], Stents Other Cardiovascular History: [place] in 2006, three angioplasty. Triple bypass 2012. Respiratory History: Reports: None Gastrointestinal History: Reports: Pancreatitis Genitourinary History: Reports: BPH Musculoskeletal History: Reports: Muscular Dystrophy Neurological History: Reports: None Psychiatric History: Reports: None Endocrine/Metabolic History: Reports: None Hematologic History: Reports: Other (See Below) Other Hematologic History: DVT affecting left knee Immunologic History: Reports: None Oncologic (Cancer) History: Reports: None Dermatologic History: Reports: None - Infectious Disease History Infectious Disease History: Reports: Chicken Pox, Measles, Mumps - Past Surgical History Head Surgeries/Procedures: Reports: None HEENT Surgical History: Reports: None Cardiovascular Surgical History: Reports: Coronary Artery Bypass Respiratory Surgical History: Reports: None GI Surgical History: Reports: None Male Surgical History: Reports: None Endocrine Surgical History: Reports: None Neurological Surgical History: Reports: None Musculoskeletal Surgical History: Reports: None Oncologic Surgical History: Reports: None Dermatological Surgical History: Reports: None Social & Family History - Family History Family Medical History: Noncontributory - Caffeine Use Caffeine Use: Reports: Coffee ED ROS GENERAL - Review of Systems Review Of Systems: See Below ED EXAM, GENERAL - Physical Exam Exam: See Below Course - Vital Signs Last Recorded V/S: Last Vital Signs Temp 96.4 F 09/19/17 12:15 Pulse 65 09/19/17 12:15 Resp 22 H 09/19/17 12:15 BP 163/82 H 09/19/17 12:15 Pulse Ox 98 09/19/17 12:15 - Orders/Labs/Meds Orders: Active Orders 24 hr Category Date Time Status EKG Documentation Completion [RC] STAT Care 09/19/17 12:17 Active Abdomen Pelvis w Cont [CT] Stat Exams 09/19/17 12:14 Taken UA W/MICROSCOPIC [URIN] Stat Lab 09/19/17 13:08 Ordered Sodium Chloride 0.9% [Normal Saline] 1,000 ml Med 09/19/17 12:15 Active IV STAT Medication Orders Sodium Chloride (Normal Saline) 1,000 mls @ 125 mls/hr IV STAT JAMI Last Admin: 09/19/17 12:45 Dose: 125 mls/hr Labs: Laboratory Tests 09/19/17 09/19/17 09/19/17 Range/Units 12:44 12:44 13:08 WBC 6.78 (4.0-11.0) K/uL RBC 4.64 (4.50-5.90) M/uL Hgb 14.0 (13.0-17.0) g/dL Hct 40.9 (38.0-50.0) % MCV 88.1 (80.0-98.0) fL MCH 30.2 (27.0-32.0) pg MCHC 34.2 (31.0-37.0) g/dL RDW Std Deviation 45.6 (28.0-62.0) fl RDW Coeff of Theo 14 (11.0-15.0) % Plt Count 208 (150-400) K/uL MPV 9.70 (7.40-12.00) fL Neut % (Auto) 53.9 (48.0-80.0) % Lymph % (Auto) 27.9 (16.0-40.0) % [place] % (Auto) 10.8 (0.0-15.0) % Eos % (Auto) 6.8 (0.0-7.0) % Baso % (Auto) 0.6 (0.0-1.5) % Neut # (Auto) 3.7 (1.4-5.7) K/uL Lymph # (Auto) 1.9 (0.6-2.4) K/uL [place] # (Auto) 0.7 (0.0-0.8) K/uL Eos # (Auto) 0.5 (0.0-0.7) K/uL Baso # (Auto) 0.0 (0.0-0.1) K/uL Nucleated RBC % 0.0 /100WBC Nucleated RBCs # 0 K/uL Sodium 141 (136-148) mmol/L Potassium 4.1 (3.5-5.1) mmol/L Chloride 105 (98-107) mmol/L Carbon Dioxide 27.9 (21.0-32.0) mmol/L BUN 15 (7.0-18.0) mg/dL Creatinine 1.0 (0.8-1.3) mg/dL Est Cr Clr Drug Dosing 85.67 mL/min Estimated GFR (MDRD) > 60.0 ml/min Glucose 104 (74-106) mg/dL Calcium 9.0 (8.5-10.1) mg/dL Total Bilirubin 0.5 (0.2-1.0) mg/dL AST 19 (15-37) IU/L ALT 18 (14-63) IU/L Alkaline Phosphatase 61 (46-116) U/L Troponin I < 0.050 (0.000-0.056) ng/mL Total Protein 7.1 (6.4-8.2) g/dL Albumin 3.8 (3.4-5.0) g/dL Globulin 3.3 (2.0-3.5) g/dL Albumin/Globulin Ratio 1.2 L (1.3-2.8) Lipase 39985 H (73-393) U/L Urine Color YELLOW Urine Appearance SLT CLOUDY Urine pH 5.5 (5.0-8.0) Ur Specific [place] 1.025 (1.001-1.035) Urine Protein 30 (NEGATIVE) mg/dL Urine Glucose (UA) NEGATIVE (NEGATIVE) mg/dL Urine Ketones NEGATIVE (NEGATIVE) mg/dL Urine Occult Blood LARGE H (NEGATIVE) Urine Nitrite NEGATIVE (NEGATIVE) Urine Bilirubin NEGATIVE (NEGATIVE) Urine Urobilinogen 0.2 (<2.0) EU/dL Ur Leukocyte Esterase MODERATE (NEGATIVE) Urine RBC 25-35 (0-2/HPF) Urine WBC 5-15 (0-5/HPF) Ur Epithelial Cells FEW (NONE-FEW) Amorphous Sediment FEW (NEGATIVE) Urine Bacteria FEW (NEGATIVE) Meds: Medications Generic Name Dose Route Start Last Admin Trade Name Freq PRN Reason Stop Dose Admin Sodium Chloride 1,000 mls @ 125 mls/hr 09/19/17 12:15 09/19/17 12:45 Normal Saline IV 125 mls/hr STAT JAMI Administration Discontinued Medications Generic Name Dose Route Start Last Admin Trade Name Freq PRN Reason Stop Dose Admin Iopamidol 95 ml 09/19/17 13:25 09/19/17 13:42 Isovue Multipack-370 (76%) IVPUSH 09/19/17 13:26 95 ml ONETIME ONE Administration Morphine Sulfate 2 mg 09/19/17 12:16 09/19/17 12:47 Morphine IVPUSH 09/19/17 12:17 2 mg ONETIME ONE Administration Ondansetron HCl 8 mg 09/19/17 12:14 09/19/17 12:47 Zofran IVPUSH 09/19/17 12:15 8 mg ONETIME ONE Administration Pantoprazole Sodium 80 mg 09/19/17 12:16 09/19/17 12:48 Protonix Iv IVPUSH 09/19/17 12:17 80 mg .BOLUS ONE Administration Departure - Departure Time of Disposition: 14:43 Disposition: Admitted As Inpatient 66 Condition: Fair Clinical Impression: Pancreatitis - Discharge Information Referrals: PCP,None [Primary Care Provider] - Forms: ED Department Discharge - My Orders Last 24 Hours: My Active Orders 09/19/17 12:14 Abdomen Pelvis w Cont [CT] Stat 09/19/17 12:15 Sodium Chloride 0.9% [Normal Saline] 1,000 ml IV STAT 09/19/17 12:17 EKG Documentation Completion [RC] STAT 09/19/17 13:08 UA W/MICROSCOPIC [URIN] Stat - Assessment/Plan Last 24 Hours: My Active Orders 09/19/17 12:14 Abdomen Pelvis w Cont [CT] Stat 09/19/17 12:15 Sodium Chloride 0.9% [Normal Saline] 1,000 ml IV STAT 09/19/17 12:17 EKG Documentation Completion [RC] STAT 09/19/17 13:08 UA W/MICROSCOPIC [URIN] Stat
[2017-09-19] MEDS ORDERED: Morphine 2 MG/ML Syringe IVPUSH ONE (12:16)
[2017-09-19] MEDS ORDERED: Pantoprazole 40 MG Vial IVPUSH ONE (12:16)
[2017-09-19 13:14] LABS: CHLORIDE,CL 105 mmol/L (98-107); SODIUM,NA 141 mmol/L (136-148)
[2017-09-19] MEDS ORDERED: Iopamidol 755 MG/ML 200 ML Multipack Bottle IVPUSH ONE (13:25)
[2017-09-19] MEDS ORDERED: Ondansetron 4 MG/2 ML SDV IVPUSH PRN (15:23)
[2017-09-19] MEDS ORDERED: HYDROmorphone 2 MG Tab PO PRN (15:30)
--- NOTE | 2017-09-19 15:34 | PCM.HP ---
H&P History of Present Illness - General Date of Service: 09/19/17 Admit Problem/Dx: Admission Diagnosis/Problem Admission Diagnosis/Problem Pancreatitis Source of Information: Patient - History of Present Illness Initial Comments - Free Text/Narative: This is a 67-year-old male clinic patient of mine that is being admitted for acute onset of severe epigastric abdominal pain secondary to acute pancreatitis. Patient has had issues with pancreatitis in the past, his previous admission in March resulted in him being transferred over to [place] where he had a cholecystectomy due to suspicion of possibly gallstone induced pancreatitis. Patient states that since then he has done very well and has not had another bout of pancreatitis until today, patient states that he woke up in the a.m. and he was out doing some yard work when all of a sudden he had the severe abdominal pain and nausea, patient came into the ED and it was determined that his lipase levels greater than 20,000. CT of the abdomen does not show any acute changes in pancreas no pseudocysts. Patient currently states that he is in pain but is well controlled as compared to prior to coming into the ED. He also recently had a TURP procedure done and is recovering from that as well. He denies any alcohol consumption, he does not have elevated triglycerides and he is not on any medication that would be likely instigated for an acute pancreatitis attack. Onset of Symptoms: Reports: Sudden Upper Abdominal Pain Score (Numeric/FACES): 6 - Related Data Allergies/Adverse Reactions: Allergies Allergy/AdvReac Type Severity Reaction Status Date / Time No Known Allergies Allergy Verified 03/22/17 16:30 Home Medications: Home Meds Carvedilol [Coreg] 25 mg PO DAILY 02/27/17 [History] Clopidogrel [Plavix] 75 mg PO DAILY 02/27/17 [History] Lisinopril 10 mg PO DAILY 02/27/17 [History] Rosuvastatin Calcium [Crestor] 40 mg PO DAILY 02/27/17 [History] Tamsulosin [Flomax] 0.4 mg PO DAILY 02/27/17 [History] Finasteride [Proscar] 5 mg PO DAILY #1 tablet 03/24/17 [Rx] Past Medical History HEENT History: Reports: None Cardiovascular History: Reports: [place], Stents Other Cardiovascular History: [place] in 2006, three angioplasty. Triple bypass 2012. Respiratory History: Reports: None Gastrointestinal History: Reports: Pancreatitis Genitourinary History: Reports: BPH Musculoskeletal History: Reports: Muscular Dystrophy Neurological History: Reports: None Psychiatric History: Reports: None Endocrine/Metabolic History: Reports: None Hematologic History: Reports: Other (See Below) Other Hematologic History: DVT affecting left knee Immunologic History: Reports: None Oncologic (Cancer) History: Reports: None Dermatologic History: Reports: None - Infectious Disease History Infectious Disease History: Reports: Chicken Pox, Measles, Mumps - Past Surgical History Head Surgeries/Procedures: Reports: None HEENT Surgical History: Reports: None Cardiovascular Surgical History: Reports: Coronary Artery Bypass Respiratory Surgical History: Reports: None GI Surgical History: Reports: None Male Surgical History: Reports: None Endocrine Surgical History: Reports: None Neurological Surgical History: Reports: None Musculoskeletal Surgical History: Reports: None Oncologic Surgical History: Reports: None Dermatological Surgical History: Reports: None Social & Family History - Family History Family Medical History: Noncontributory - Tobacco Use Smoking Status *Q: Never Smoker - Caffeine Use Caffeine Use: Reports: Coffee - Recreational Drug Use Recreational Drug Use: No H&P Review of Systems - Review of Systems: Review Of Systems: ROS reveals no pertinent complaints other than HPI. Exam - Exam Exam: See Below - Vital Signs Vital Signs: Last Vital Signs Temp 36.5 C 09/19/17 15:10 Pulse 49 L 09/19/17 15:10 Resp 14 09/19/17 15:10 BP 130/70 09/19/17 15:10 Pulse Ox 97 09/19/17 15:10 Weight: 92.986 kg - Exam General: Alert, Oriented, Cooperative, Mild Distress HEENT: Conjunctiva Clear Neck: Supple, Trachea Midline Lungs: Clear to Auscultation, Normal Respiratory Effort Cardiovascular: Regular Rate, Regular Rhythm GI/Abdominal Exam: Guarding, Tender Extremities: Normal Inspection, Normal Range of Motion - Patient Data Lab Results Last 24 hrs: Laboratory Results - last 24 hr 09/19/17 09/19/17 09/19/17 Range/Units 12:44 12:44 13:08 WBC 6.78 (4.0-11.0) K/uL RBC 4.64 (4.50-5.90) M/uL Hgb 14.0 (13.0-17.0) g/dL Hct 40.9 (38.0-50.0) % MCV 88.1 (80.0-98.0) fL MCH 30.2 (27.0-32.0) pg MCHC 34.2 (31.0-37.0) g/dL RDW Std Deviation 45.6 (28.0-62.0) fl RDW Coeff of Theo 14 (11.0-15.0) % Plt Count 208 (150-400) K/uL MPV 9.70 (7.40-12.00) fL Neut % (Auto) 53.9 (48.0-80.0) % Lymph % (Auto) 27.9 (16.0-40.0) % [place] % (Auto) 10.8 (0.0-15.0) % Eos % (Auto) 6.8 (0.0-7.0) % Baso % (Auto) 0.6 (0.0-1.5) % Neut # (Auto) 3.7 (1.4-5.7) K/uL Lymph # (Auto) 1.9 (0.6-2.4) K/uL [place] # (Auto) 0.7 (0.0-0.8) K/uL Eos # (Auto) 0.5 (0.0-0.7) K/uL Baso # (Auto) 0.0 (0.0-0.1) K/uL Nucleated RBC % 0.0 /100WBC Nucleated RBCs # 0 K/uL Sodium 141 (136-148) mmol/L Potassium 4.1 (3.5-5.1) mmol/L Chloride 105 (98-107) mmol/L Carbon Dioxide 27.9 (21.0-32.0) mmol/L BUN 15 (7.0-18.0) mg/dL Creatinine 1.0 (0.8-1.3) mg/dL Est Cr Clr Drug Dosing 85.67 mL/min Estimated GFR (MDRD) > 60.0 ml/min Glucose 104 (74-106) mg/dL Calcium 9.0 (8.5-10.1) mg/dL Total Bilirubin 0.5 (0.2-1.0) mg/dL AST 19 (15-37) IU/L ALT 18 (14-63) IU/L Alkaline Phosphatase 61 (46-116) U/L Troponin I < 0.050 (0.000-0.056) ng/mL Total Protein 7.1 (6.4-8.2) g/dL Albumin 3.8 (3.4-5.0) g/dL Globulin 3.3 (2.0-3.5) g/dL Albumin/Globulin Ratio 1.2 L (1.3-2.8) Lipase 96467 H (73-393) U/L Urine Color YELLOW Urine Appearance SLT CLOUDY Urine pH 5.5 (5.0-8.0) Ur Specific [place] 1.025 (1.001-1.035) Urine Protein 30 (NEGATIVE) mg/dL Urine Glucose (UA) NEGATIVE (NEGATIVE) mg/dL Urine Ketones NEGATIVE (NEGATIVE) mg/dL Urine Occult Blood LARGE H (NEGATIVE) Urine Nitrite NEGATIVE (NEGATIVE) Urine Bilirubin NEGATIVE (NEGATIVE) Urine Urobilinogen 0.2 (<2.0) EU/dL Ur Leukocyte Esterase MODERATE (NEGATIVE) Urine RBC 25-35 (0-2/HPF) Urine WBC 5-15 (0-5/HPF) Ur Epithelial Cells FEW (NONE-FEW) Amorphous Sediment FEW (NEGATIVE) Urine Bacteria FEW (NEGATIVE) Result Diagrams: 09/19/17 12:44 09/19/17 12:44 - Problem List (1) Acute pancreatitis SNOMED Code(s): 223929090 ICD Code: K85.90 - ACUTE PANCREATITIS WITHOUT NECROSIS OR INFECTION, UNSP Status: Acute Current Visit: No Qualifiers: Pancreatitis type: unspecified pancreatitis type Acute pancreatitis complication: no infection or necrosis Qualified Code(s): K85.90 - Acute pancreatitis without necrosis or infection, unspecified Problem List Initiated/Reviewed/Updated: Yes Orders Last 24hrs: Active Orders 24 hr Category Date Time Status Admission Status [Patient Status] [ADT] Stat ADT 09/19/17 14:44 Active EKG Documentation Completion [RC] STAT Care 09/19/17 12:17 Active Height and Weight [RC] UPON Care 09/19/17 15:23 Active Intake and Output [RC] QSHIFT Care 09/19/17 15:24 Active Oxygen Therapy [RC] PRN Care 09/19/17 15:23 Active Up With Assistance [RC] ASDIRECTED Care 09/19/17 15:23 Active VTE/DVT Education [RC] PER UNIT ROUTINE Care 09/19/17 15:23 Active Vital Signs [RC] Q4H Care 09/19/17 15:23 Active Nothing per Oral Now Diet [DIET] Diet 09/19/17 Breakfast Active Abdomen Pelvis w Cont [CT] Stat Exams 09/19/17 12:14 Taken CBC WITH AUTO DIFF [HEME] AM Lab 09/20/17 05:11 Ordered COMPREHENSIVE METABOLIC PN,CMP [CHEM] AM Lab 09/20/17 05:11 Ordered LIPASE [CHEM] AM Lab 09/20/17 05:11 Ordered LIPASE [CHEM] AM Lab 09/21/17 05:11 Ordered LIPASE [CHEM] AM Lab 09/22/17 05:11 Ordered UA W/MICROSCOPIC [URIN] Stat Lab 09/19/17 13:08 Ordered Enoxaparin [Lovenox] Med 09/19/17 15:30 Ordered 40 mg SUBCUT Q24H HYDROmorphone [Dilaudid] Med 09/19/17 15:30 Ordered 2 mg PO Q3H PRN Ondansetron [Zofran] Med 09/19/17 15:23 Ordered 4 mg IVPUSH Q4H PRN Sodium Chloride 0.9% [Normal Saline] 1,000 ml Med 09/19/17 15:30 Ordered IV CONTINUOUS Sodium Chloride 0.9% [Normal Saline] 1,000 ml Med 09/19/17 12:15 Active IV STAT Sequential Compression Device [OM.PC] Per Unit Routine Oth 09/19/17 15:24 Ordered Medication Orders Enoxaparin Sodium (Lovenox) 40 mg SUBCUT Q24H JAMI Hydromorphone HCl (Dilaudid) 2 mg PO Q3H PRN PRN Reason: Pain (severe 7-10) Sodium Chloride (Normal Saline) 1,000 mls @ 125 mls/hr IV STAT JAMI Last Admin: 09/19/17 12:45 Dose: 125 mls/hr Sodium Chloride (Normal Saline) 1,000 mls @ 200 mls/hr IV CONTINUOUS JAMI Ondansetron HCl (Zofran) 4 mg IVPUSH Q4H PRN PRN Reason: Nausea/Vomiting Assessment/Plan Comment:: This is a 67-year-old male presenting with a acute history of severe midepigastric abdominal pain in the setting of acute pancreatitis. Aggressive IV fluid hydration with normal saline at 200 mL per hour, pain control with opioids IV medication, nausea control with Zofran, continue to trend the lipase, [place] [address]. Patient is status post cholecystectomy earlier in the year, with a recent TURP procedure just done.
[2017-09-19] MEDS: Sodium Chloride 0.9% 1,000 ML IV SCH ×2 (15:57→21:02)
[2017-09-19] MEDS: Enoxaparin 40 MG/0.4 ML Syringe SUBCUT SCH (16:13)
[2017-09-19] MEDS ORDERED: HYDROmorphone 1 MG/ML Syringe IVPUSH PRN (17:18)
[2017-09-20 06:24] LABS: CHLORIDE,CL 111 mmol/L (98-107); SODIUM,NA 143 mmol/L (136-148)
[2017-09-20] MEDS: Sodium Chloride 0.9% 1,000 ML IV SCH ×4 (06:39→21:44)
--- NOTE | 2017-09-20 09:39 | CT ---
EXAM DATE: 09/19/17 PATIENT'S AGE: 67 Patient: JASON JAMES Facility: [place], [place] Site . Site : 1950 Study: CT Abdomen/Pelvis [id number]/12/2018 2:05:45 PM Ordering Physician: Doctor De Luna Final Report: Indication: Epigastric pain. History of pancreatitis. Technique: Contrast enhanced CT abdomen and pelvis. 95 mL Isovue 370. Coronal sagittal reformatted images obtained. Comparison: CT abdomen pelvis 02/27/2017. Findings: Trace effusions. Basilar atelectasis. Normal heart size. No pericardial effusion. Bilobed cyst in the liver again seen. Additional too small to characterize tiny low-density lesions in the liver. Tiny peripheral low-density lesion in the spleen unchanged from prior examination and likely reflects a benign finding. Adrenal glands are unremarkable. Cholecystectomy. No abdominal aortic aneurysm. Symmetric enhancement of both kidneys. No hydronephrosis. Tiny low-density lesion in the right kidney likely reflects a cyst. Urinary bladder is decompressed with mild bladder wall thickening. TURP defect in the prostate gland. Bowel is unremarkable. Pancreatic calcifications most likely reflect chronic pancreatitis. There is peripancreatic inflammatory change and fluid. There is normal enhancement of the pancreas. No organized fluid collections. No suspicious bony lesions. Impression: 1. Acute on chronic pancreatitis. Peripancreatic inflammatory change and fluid reflecting acute pancreatitis. Normal enhancement of the pancreas. No pseudocyst. Please note that all CT scans at this facility use dose modulation, iterative reconstruction, and/or weight-based dosing when appropriate to reduce radiation dose to as low as reasonably achievable. Dictated by Candie Gutierrez MD @ Sep 19 2017 2:23PM (Electronic Signature) Report Signed by Proxy. [facility] HOSPITALRachael
--- NOTE | 2017-09-20 11:48 | PCM.PN ---
- General Info Date of Service: 09/20/17 - Review of Systems Systems Review Comment:: abdominal pain is improving, - Patient Data Vitals - Most Recent: Last Vital Signs Temp 36.3 C 09/20/17 11:00 Pulse 52 L 09/20/17 11:00 Resp 18 09/20/17 11:00 BP 118/60 09/20/17 11:00 Pulse Ox 97 09/20/17 11:00 Weight - Most Recent: 92.986 kg I&O - Last 24 Hours: Intake & Output 09/19/17 09/20/17 09/20/17 22:59 06:59 14:59 Intake Total 0 2400 Output Total 0 1110 Balance 0 1290 Lab Results Last 24 Hours: Laboratory Results - last 24 hr 09/19/17 09/19/17 09/19/17 Range/Units 12:44 12:44 13:08 WBC 6.78 (4.0-11.0) K/uL RBC 4.64 (4.50-5.90) M/uL Hgb 14.0 (13.0-17.0) g/dL Hct 40.9 (38.0-50.0) % MCV 88.1 (80.0-98.0) fL MCH 30.2 (27.0-32.0) pg MCHC 34.2 (31.0-37.0) g/dL RDW Std Deviation 45.6 (28.0-62.0) fl RDW Coeff of Theo 14 (11.0-15.0) % Plt Count 208 (150-400) K/uL MPV 9.70 (7.40-12.00) fL Neut % (Auto) 53.9 (48.0-80.0) % Lymph % (Auto) 27.9 (16.0-40.0) % Redwood % (Auto) 10.8 (0.0-15.0) % Eos % (Auto) 6.8 (0.0-7.0) % Baso % (Auto) 0.6 (0.0-1.5) % Neut # (Auto) 3.7 (1.4-5.7) K/uL Lymph # (Auto) 1.9 (0.6-2.4) K/uL Redwood # (Auto) 0.7 (0.0-0.8) K/uL Eos # (Auto) 0.5 (0.0-0.7) K/uL Baso # (Auto) 0.0 (0.0-0.1) K/uL Nucleated RBC % 0.0 /100WBC Nucleated RBCs # 0 K/uL Sodium 141 (136-148) mmol/L Potassium 4.1 (3.5-5.1) mmol/L Chloride 105 (98-107) mmol/L Carbon Dioxide 27.9 (21.0-32.0) mmol/L BUN 15 (7.0-18.0) mg/dL Creatinine 1.0 (0.8-1.3) mg/dL Est Cr Clr Drug Dosing 85.67 mL/min Estimated GFR (MDRD) > 60.0 ml/min Glucose 104 (74-106) mg/dL Calcium 9.0 (8.5-10.1) mg/dL Total Bilirubin 0.5 (0.2-1.0) mg/dL AST 19 (15-37) IU/L ALT 18 (14-63) IU/L Alkaline Phosphatase 61 (46-116) U/L Troponin I < 0.050 (0.000-0.056) ng/mL Total Protein 7.1 (6.4-8.2) g/dL Albumin 3.8 (3.4-5.0) g/dL Globulin 3.3 (2.0-3.5) g/dL Albumin/Globulin Ratio 1.2 L (1.3-2.8) Lipase 07724 H (73-393) U/L Urine Color YELLOW Urine Appearance SLT CLOUDY Urine pH 5.5 (5.0-8.0) Ur Specific [place] 1.025 (1.001-1.035) Urine Protein 30 (NEGATIVE) mg/dL Urine Glucose (UA) NEGATIVE (NEGATIVE) mg/dL Urine Ketones NEGATIVE (NEGATIVE) mg/dL Urine Occult Blood LARGE H (NEGATIVE) Urine Nitrite NEGATIVE (NEGATIVE) Urine Bilirubin NEGATIVE (NEGATIVE) Urine Urobilinogen 0.2 (<2.0) EU/dL Ur Leukocyte Esterase MODERATE (NEGATIVE) Urine RBC 25-35 (0-2/HPF) Urine WBC 5-15 (0-5/HPF) Ur Epithelial Cells FEW (NONE-FEW) Amorphous Sediment FEW (NEGATIVE) Urine Bacteria FEW (NEGATIVE) 09/20/17 09/20/17 Range/Units 05:46 05:46 WBC 6.03 (4.0-11.0) K/uL RBC 4.19 L (4.50-5.90) M/uL Hgb 12.3 L (13.0-17.0) g/dL Hct 37.3 L (38.0-50.0) % MCV 89.0 (80.0-98.0) fL MCH 29.4 (27.0-32.0) pg MCHC 33.0 (31.0-37.0) g/dL RDW Std Deviation 46.2 (28.0-62.0) fl RDW Coeff of Theo 14 (11.0-15.0) % Plt Count 164 (150-400) K/uL MPV 9.70 (7.40-12.00) fL Neut % (Auto) 59.0 (48.0-80.0) % Lymph % (Auto) 24.4 (16.0-40.0) % Redwood % (Auto) 9.3 (0.0-15.0) % Eos % (Auto) 6.6 (0.0-7.0) % Baso % (Auto) 0.7 (0.0-1.5) % Neut # (Auto) 3.6 (1.4-5.7) K/uL Lymph # (Auto) 1.5 (0.6-2.4) K/uL Redwood # (Auto) 0.6 (0.0-0.8) K/uL Eos # (Auto) 0.4 (0.0-0.7) K/uL Baso # (Auto) 0.0 (0.0-0.1) K/uL Nucleated RBC % 0.0 /100WBC Nucleated RBCs # 0 K/uL Sodium 143 (136-148) mmol/L Potassium 4.0 (3.5-5.1) mmol/L Chloride 111 H (98-107) mmol/L Carbon Dioxide 26.2 (21.0-32.0) mmol/L BUN 12 (7.0-18.0) mg/dL Creatinine 0.8 (0.8-1.3) mg/dL Est Cr Clr Drug Dosing 107.09 mL/min Estimated GFR (MDRD) > 60.0 ml/min Glucose 90 (74-106) mg/dL Calcium 8.2 L (8.5-10.1) mg/dL Total Bilirubin 0.5 (0.2-1.0) mg/dL AST 14 L (15-37) IU/L ALT 13 L (14-63) IU/L Alkaline Phosphatase 46 (46-116) U/L Troponin I (0.000-0.056) ng/mL Total Protein 5.6 L (6.4-8.2) g/dL Albumin 2.9 L (3.4-5.0) g/dL Globulin 2.7 (2.0-3.5) g/dL Albumin/Globulin Ratio 1.1 L (1.3-2.8) Lipase 2073 H (73-393) U/L Urine Color Urine Appearance Urine pH (5.0-8.0) Ur Specific Victoria (1.001-1.035) Urine Protein (NEGATIVE) mg/dL Urine Glucose (UA) (NEGATIVE) mg/dL Urine Ketones (NEGATIVE) mg/dL Urine Occult Blood (NEGATIVE) Urine Nitrite (NEGATIVE) Urine Bilirubin (NEGATIVE) Urine Urobilinogen (<2.0) EU/dL Ur Leukocyte Esterase (NEGATIVE) Urine RBC (0-2/HPF) Urine WBC (0-5/HPF) Ur Epithelial Cells (NONE-FEW) Amorphous Sediment (NEGATIVE) Urine Bacteria (NEGATIVE) Med Orders - Current: Current Medications Enoxaparin Sodium (Lovenox) 40 mg SUBCUT Q24H JAMI Last Admin: 09/19/17 16:13 Dose: 40 mg Hydromorphone HCl (Dilaudid) 1 mg IVPUSH Q3H PRN PRN Reason: Pain Last Admin: 09/19/17 19:30 Dose: 1 mg Sodium Chloride (Normal Saline) 1,000 mls @ 200 mls/hr IV CONTINUOUS JAMI Last Admin: 09/20/17 11:42 Dose: 200 mls/hr Ondansetron HCl (Zofran) 4 mg IVPUSH Q4H PRN PRN Reason: Nausea/Vomiting Discontinued Medications Sodium Chloride (Normal Saline) 1,000 mls @ 125 mls/hr IV STAT JAMI Last Admin: 09/19/17 12:45 Dose: 125 mls/hr Iopamidol (Isovue Multipack-370 (76%)) 95 ml IVPUSH ONETIME ONE Stop: 09/19/17 13:26 Last Admin: 09/19/17 13:42 Dose: 95 ml Morphine Sulfate (Morphine) 2 mg IVPUSH ONETIME ONE Stop: 09/19/17 12:17 Last Admin: 09/19/17 12:47 Dose: 2 mg Ondansetron HCl (Zofran) 8 mg IVPUSH ONETIME ONE Stop: 09/19/17 12:15 Last Admin: 09/19/17 12:47 Dose: 8 mg Pantoprazole Sodium (Protonix Iv) 80 mg IVPUSH .BOLUS ONE Stop: 09/19/17 12:17 Last Admin: 09/19/17 12:48 Dose: 80 mg - Exam General: Alert, Oriented Neck: Supple Lungs: Clear to Auscultation, Normal Respiratory Effort Cardiovascular: Regular Rate, Regular Rhythm GI/Abdominal Exam: Normal Bowel Sounds, Soft, Non-Tender Extremities: Non-Tender Skin: Warm, Dry, Intact - Problem List Review Problem List Initiated/Reviewed/Updated: Yes - My Orders Last 24 Hours: My Active Orders 09/20/17 11:16 Abdomen Comp [US] Routine 09/20/17 Breakfast Clear Liquid Diet [DIET] - Plan Plan:: This is a 67-year-old male admitted with acute pancreatitis. We will continue IV fluids, pain has improved so will start clear liquid diet. We will check RUQ ultrasound.
--- NOTE | 2017-09-20 16:29 | US ---
EXAMINATION: Abdomen ultrasound HISTORY: Pain COMPARISON: 09/19/2017 TECHNIQUE: Grayscale and color Doppler imaging obtained of the abdomen. FINDINGS: The visualized aorta and IVC appear normal. The pancreas appears relatively hypoechoic with a minimally prominent pancreatic duct. The liver appears grossly normal in contour and echotexture c ontaining several small cysts measuring up to 3.2 cm. Common bile duct measures 4 mm. Cholecystectomy . Right kidney measures 13.8 cm in the left kidney measures 12.4 cm [id number] without evidence of hydronephrosis. The spleen appears normal. No ascites. IMPRESSION: 1. The pancreas is mildly hypoechoic consistent with pancreatitis. 2. Small hepatic cysts noted. 3. Cholecystectomy.
[2017-09-20] MEDS: Enoxaparin 40 MG/0.4 ML Syringe SUBCUT SCH (16:44)
[2017-09-21] MEDS: Sodium Chloride 0.9% 1,000 ML IV SCH ×2 (02:06→06:50)
--- NOTE | 2017-09-21 12:19 | PCM.DCSUM1 ---
Discharge Summary - Discharge Data Discharge Date: 09/21/17 Discharge Disposition: Home, Self-Care 01 Condition: Good - Patient Summary/Data Hospital Course: 67-year-old male admitted for acute pancreatitis. He presented with epigastric pain and lipase level of greater than 20,000. He has a history of two other episodes of pancreatitis. He had a a recent colecystectomy for suspect gallstone pancreatitis. CT scan and abdominal ultrasound were unremarkalbe. He was treated with bowel rest, IV fluid rescucitation and prn dilaudid. His abdominal pain did improve and today he is tolerating an oral diet. He was discharged home today to have follow up with Dr. Chapman. - Patient Instructions Diet: Usual Diet as Tolerated - Discharge Plan *COPY OF PRESCRIPTION DRUG MONITORING REPORT IN PATIENT [place]LA[facility]: Not Applicable Home Medications: Home Meds Carvedilol [Coreg] 25 mg PO DAILY 02/27/17 [History] Clopidogrel [Plavix] 75 mg PO DAILY 02/27/17 [History] Lisinopril 10 mg PO DAILY 02/27/17 [History] Rosuvastatin Calcium [Crestor] 40 mg PO DAILY 02/27/17 [History] Tamsulosin [Flomax] 0.4 mg PO DAILY 02/27/17 [History] Finasteride [Proscar] 5 mg PO DAILY #1 tablet 03/24/17 [Rx] Patient Handouts: Acute Pancreatitis Forms: ED Department Discharge Referrals: PCP,None [Primary Care Provider] - - Patient Data Vitals - Most Recent: Last Vital Signs Temp 36.4 C 09/21/17 08:00 Pulse 49 L 09/21/17 08:00 Resp 16 09/21/17 08:00 BP 145/75 H 09/21/17 08:00 Pulse Ox 96 09/21/17 08:00 Weight - Most Recent: 92.986 kg I&O - Last 24 hours: Intake & Output 09/20/17 09/21/17 09/21/17 22:59 06:59 14:59 Intake Total 580 3154 Output Total 900 1875 Balance -320 1279 Lab Results - Last 24 hrs: Laboratory Results - last 24 hr 09/21/17 Range/Units 05:37 Lipase 1007 H (73-393) U/L Med Orders - Current: Current Medications Enoxaparin Sodium (Lovenox) 40 mg SUBCUT Q24H JAMI Last Admin: 09/20/17 16:44 Dose: 40 mg Hydromorphone HCl (Dilaudid) 1 mg IVPUSH Q3H PRN PRN Reason: Pain Last Admin: 09/19/17 19:30 Dose: 1 mg Sodium Chloride (Normal Saline) 1,000 mls @ 200 mls/hr IV CONTINUOUS JAMI Last Admin: 09/21/17 06:50 Dose: 200 mls/hr Ondansetron HCl (Zofran) 4 mg IVPUSH Q4H PRN PRN Reason: Nausea/Vomiting Discontinued Medications Sodium Chloride (Normal Saline) 1,000 mls @ 125 mls/hr IV STAT JAMI Last Admin: 09/19/17 12:45 Dose: 125 mls/hr Iopamidol (Isovue Multipack-370 (76%)) 95 ml IVPUSH ONETIME ONE Stop: 09/19/17 13:26 Last Admin: 09/19/17 13:42 Dose: 95 ml Morphine Sulfate (Morphine) 2 mg IVPUSH ONETIME ONE Stop: 09/19/17 12:17 Last Admin: 09/19/17 12:47 Dose: 2 mg Ondansetron HCl (Zofran) 8 mg IVPUSH ONETIME ONE Stop: 09/19/17 12:15 Last Admin: 09/19/17 12:47 Dose: 8 mg Pantoprazole Sodium (Protonix Iv) 80 mg IVPUSH .BOLUS ONE Stop: 09/19/17 12:17 Last Admin: 09/19/17 12:48 Dose: 80 mg
== END 2017-09-21 14:51 | disposition home or self-care (01) | DRG 439 ==
LOC: MW.ED 12:12 → MW.MS 14:44
PROVIDERS: ADMIT Internal Medicine; ATTEND Internal Medicine
DX: K85.90 Acute pancreatitis without necrosis or infection, unspecified (principal); G71.0 Muscular dystrophy; I82.402 Acute embolism and thrombosis of unspecified deep veins of left lower extremity; Z90.49 Acquired absence of other specified parts of digestive tract; N40.0 Benign prostatic hyperplasia without lower urinary tract symptoms; Z79.02 Long term (current) use of antithrombotics/antiplatelets; Z79.899 Other long term (current) drug therapy; I25.2 Old myocardial infarction; Z95.1 Presence of aortocoronary bypass graft; Z95.5 Presence of coronary angioplasty implant and graft; Z98.890 Other specified postprocedural states
CPT/HCPCS: 74177; 80053; 81001; 83690; 84484; 85025; 93005; 96361; 96374; 96375; 99284; C9113; J2270; J2405; J7040; Q9967; 36415; 76700; 76700-26; J1170; J1650